=== PATIENT | female | born 1990 | race Caucasian/White ===

== ENCOUNTER 2021-01-12 12:26 | Outpatient (CLI) | payer MEDICAID ==
[2021-01-14 13:26] LABS: HSV 1 IGG TYPE SPECIFIC AB <0.90 index; HSV 2 IGG TYPE SPECIFIC AB <0.90 index
== END 2021-01-12 23:59 | disposition home or self-care (01) ==
LOC: LAB.N 12:26
PROVIDERS: ATTEND Family Medicine
DX: Z20.2 Contact with and (suspected) exposure to infections with a predominantly sexual mode of transmission (principal)
CPT/HCPCS: 81599; 86695; 86696; 87389

== ENCOUNTER 2021-07-07 12:02 | Outpatient (CLI) | payer MEDICAID ==
[2021-07-07 12:32] LABS: HCT - HEMATOCRIT 41.3 % (37.0-47.0); HGB - HEMOGLOBIN 13.7 g/dL (12.0-16.0); MEAN CORPUSCULAR HEMOGLOBIN 30.1 pg (27.0-31.0); MEAN CORPUSCULAR HGB CONC 33.2 g/dL (32.0-36.0); MEAN CORPUSCULAR VOLUME 90.8 fL (81.0-99.0); MEAN PLATELET VOLUME 11.2 fL (7.9-10.8); RED BLOOD COUNT 4.55 10^6/uL (4.20-5.40); WHITE BLOOD COUNT 9.4 x10^3/uL (4.8-10.8)
[2021-07-07 13:04] LABS: THYROID STIMULATING HORMONE 1.74 uIU/mL (0.34-5.60)
[2021-07-07 13:47] LABS: ESTIMATED AVERAGE GLUCOSE 91 mg/dL (70-100); HEMOGLOBIN A1c% 4.8 % (4.27-6.07)
== END 2021-07-07 12:03 | disposition home or self-care (01) ==
LOC: LAB 12:02
PROVIDERS: ATTEND Obstetrics & Gynecology
DX: Z00.00 Encounter for general adult medical examination without abnormal findings (principal); Z13.21 Encounter for screening for nutritional disorder; Z13.1 Encounter for screening for diabetes mellitus; Z83.3 Family history of diabetes mellitus
CPT/HCPCS: 36415; 81599; 82306; 83036; 83520; 84144; 84146; 84403; 84443; 85027; 86762

== ENCOUNTER 2021-07-10 20:20 | Outpatient (CLI) | payer MEDICAID ==
--- NOTE | 2021-07-11 02:28 | Ultrasound Report ---
PROCEDURE: Ultrasound of the pelvis, transabdominal and transvaginal INDICATIONS: CHRONIC PELVIC PAIN TECHNIQUE: Real-time scanning was performed of the pelvic organs, with image documentation. Additional endovagi nal scanning was necessary due to incomplete visualization of the adnexal and endometrial structures by transabdominal scanning. COMPARISON: None. FINDINGS: No pathologic free abdominal or pelvic fluid. Uterus: Uterus is normal in size at 9.5 x 4.5 x 6.4 cm. The endometrium measures 11.6 mm in combine d thickness. Ovaries: Right and left ovary measures 3.7 x 3.0 x 4.0 and 2.9 x 1.6 x 2.4 cm respectively. His 2 cm hemorrhagic cyst noted in left ovary. IMPRESSION: Left ovarian 2 cm hemorrhagic cyst. Otherwise unremarkable ultrasound pelvis Reviewed by: Wes Aguila MD on 07/11/2021 1:26 AM [place] Approved by: Wes Aguila MD on 07/11/2021 1:26 AM [place] Station ID: [id number]
== END 2021-07-10 20:21 | disposition home or self-care (01) ==
LOC: DI 20:20
PROVIDERS: ATTEND Obstetrics & Gynecology
DX: Z31.69 Encounter for other general counseling and advice on procreation (principal); Z87.42 Personal history of other diseases of the female genital tract; N83.202 Unspecified ovarian cyst, left side

== ENCOUNTER 2021-07-17 09:40 | Outpatient (CLI) | payer MEDICAID ==
[2021-07-18 09:31] LABS: ESTRADIOL 45 pg/mL; PROGESTERONE <0.5 ng/mL
== END 2021-07-17 09:41 | disposition home or self-care (01) ==
LOC: LAB 09:40
PROVIDERS: ATTEND Obstetrics & Gynecology
DX: Z31.9 Encounter for procreative management, unspecified (principal)
CPT/HCPCS: 36415; 82670; 83001; 84144

== ENCOUNTER 2022-05-05 13:57 | Outpatient (CLI) | payer MEDICAID ==
--- NOTE | 2022-05-05 16:47 | Ultrasound Report ---
PROCEDURE: OB First Trimester INDICATIONS: POSITIVE TEST OUTSIDE/PRIOR DATING DATA: Last menstrual period (LMP): 02/23/2022. LMP-based estimated date of delivery (NESTOR): 11/30/2022. First dating scan (date and location): 05/05/2022. Estimated date of delivery (NESTOR) from first dating scan: 12/02/2022. The below data below was generated using the ultrasound NESTOR of 12/02/2022 TECHNIQUE: Real-time scanning was performed of the fetus and maternal pelvic organs, with image documentation. COMPARISON: None FINDINGS: Embryo: Mean gestational sac diameter 5.0 cm. 10 weeks 5 days. [place]-rump length 2.98 cm. 9 weeks 6 days. Heart rate: 166 A small subchorionic bleed is seen on the left measuring 2.6 x 0.8 x 1.2 cm. Measurement variability in dating: +/- 4 weeks by LMP, +/- 7 days by mean sac diameter (use before 6 weeks gestation if crown-rump length not able to be measured), +/- 5 days by crown-rump length (6-12 weeks gestation). Maternal organs: Ovaries demonstrate a right corpus luteal cyst entering 3 cm.. IMPRESSION: 1. Live intrauterine with an estimated gestational age of 9 weeks 6 days. 2. Small subchorionic bleed on the left. 3. Estimated date of delivery 12/02/2022. Reviewed by: Tano Haider on 05/05/2022 4:45 PM PDT Approved by: Tano Haider on 05/05/2022 4:45 PM PDT Station ID: [id number]
== END 2022-05-05 13:58 | disposition home or self-care (01) ==
LOC: DI 13:57
PROVIDERS: ATTEND Nurse Practitioner
DX: O20.8 Other hemorrhage in early pregnancy (principal); Z3A.09 9 weeks gestation of pregnancy

== ENCOUNTER 2022-05-31 11:40 | Outpatient (CLI) | payer MEDICAID | END 2022-05-31 11:41 | disposition home or self-care (01) | LOC: LAB 11:40 | PROVIDERS: ATTEND Obstetrics & Gynecology | DX: Z34.00 Encounter for supervision of normal first pregnancy, unspecified trimester (principal) | CPT/HCPCS: 36415 ==

== ENCOUNTER 2022-07-27 15:30 | Outpatient (CLI) | payer MEDICAID ==
--- NOTE | 2022-07-28 14:46 | Ultrasound Report ---
PROCEDURE: OB Detailed Eval INDICATIONS: SUPERVISION OF OUTSIDE/PRIOR DATING DATA: Last menstrual period (LMP): 02/23/2022. LMP-based estimated date of delivery (NESTOR): 11/22/2022. First dating scan (date and location): 05/05/2022. Estimated date of delivery (NESTOR) from first dating scan: 12/02/2022. The below data below was generated using the ultrasound NESTOR of 12/02/22 TECHNIQUE: Real-time scanning was performed of the fetus, with image documentation and biometric measurements. COMPARISON: OB ultrasound 05/05/2022. FINDINGS: General: A single living intrauterine gestation is present. Presentation: Brain Placenta: Placental position is predominantly anterior with marginal previa 1.1 cm from the placenta edge. Amniotic fluid index: 12.4 cm, within normal limits for gestational age. Largest pocket 3.7 cm heart rate: 155 beats per minute. Maternal cervical canal: 5.3 cm long; normal length is 2.5 cm or more. biometrics: Biparietal diameter: 5.0 cm 21 weeks 1 day Head circumference: 19.0 cm 21 weeks 2 days Abdominal circumference: 17.6 cm 22 weeks 4 days Femur length: 0.5 cm 21 weeks 0 days Estimated gestational age from initial scan: 21 weeks 5 days Composite gestational age from present scan: 21 weeks 3 days Estimated weight and percentile: 447 g 45th percentile Measurement variability in biometric dating: +/- 10 days from 12-20 weeks gestation, +/- 2 weeks from 20-30 weeks gestation, +/- 3 weeks at 30 weeks gestation or later. Anatomic survey: Neuro: Ventricles are normal at less than 10 mm. Cisterna magna is normal at 3-11 mm. Cerebellum i s normal in size and morphology. Nuchal skin fold: Normal at less than 6 mm between 14 and 20 weeks gestational age. Face: Nose and lips, facial profile are normal. Spine: No evidence for spina bifida. Heart: 4-chambered heart is present, with normal ventricular outflow tracts. Diaphragm: Diaphragm is intact. Stomach: Left-sided stomach is present. Kidneys: No hydronephrosis. Normal is less than 5 mm in 2nd trimester, less than 7 mm in 3rd trimester. Cord: 3 vessel cord has orthotopic insertion. Bladder: Normal in size. Extremities: All 4 extremities are visualized. IMPRESSION: Single live intrauterine with ultrasound gestational age today of 21 weeks 3 days. Anatomy is within normal limits. Marginal previa is noted as above. Interval follow-up is recommended. Reviewed by: Carol Lechuga MD on 07/28/2022 2:45 PM PST Approved by: Carol Lechuga MD on 07/28/2022 2:45 PM [facility] Station ID: [id number]
== END 2022-07-27 15:31 | disposition home or self-care (01) ==
LOC: DI 15:30
PROVIDERS: ATTEND Obstetrics & Gynecology
DX: Z34.02 Encounter for supervision of normal first pregnancy, second trimester (principal)

== ENCOUNTER 2022-09-02 10:06 | Outpatient (CLI) | payer MEDICAID ==
[2022-09-02 10:23] LABS: HCT - HEMATOCRIT 34.7 % (37.0-47.0); HGB - HEMOGLOBIN 11.7 g/dL (12.0-16.0); MEAN CORPUSCULAR HEMOGLOBIN 30.7 pg (27.0-31.0); MEAN CORPUSCULAR HGB CONC 33.7 g/dL (32.0-36.0); MEAN CORPUSCULAR VOLUME 91.1 fL (81.0-99.0); MEAN PLATELET VOLUME 10.9 fL (7.9-10.8); RED BLOOD COUNT 3.81 10^6/uL (4.20-5.40); RED CELL DISTRIBUTION WIDTH 12.5 % (12.0-15.0); WHITE BLOOD COUNT 10.6 x10^3/uL (4.8-10.8)
== END 2022-09-02 10:07 | disposition home or self-care (01) ==
LOC: LAB 10:06
PROVIDERS: ATTEND Obstetrics & Gynecology
DX: Z34.90 Encounter for supervision of normal pregnancy, unspecified, unspecified trimester (principal)
CPT/HCPCS: 36415; 85027; 86850

== ENCOUNTER 2022-09-16 07:01 | Outpatient (CLI) | payer MEDICAID ==
--- NOTE | 2022-09-16 17:42 | Ultrasound Report ---
PROCEDURE: OB Limited INDICATIONS: PARTIAL PLACENTA PREVIA OUTSIDE/PRIOR DATING DATA: Last menstrual period (LMP): 02/23/2022. LMP-based estimated date of delivery (NESTOR): 11/30/2022. First dating scan (date and location): 05/05/2022. Estimated date of delivery (NESTOR) from first dating scan: 12/02/2022. The below data below was generated using the ultrasound NESTOR of 11/22/2022 TECHNIQUE: Real-time scanning was performed of the fetus, with image documentation. COMPARISON: OB ultrasound 07/27/2022 FINDINGS: A single living intrauterine gestation is present. Presentation: Breech Placenta: Placental position is anterior, without previa. Amniotic fluid index: 16.3 cm, is 64th percentile for gestational age. Largest pocket measures 5.6 c m heart rate: 150 beats per minutes. Maternal cervical canal: 4.1 cm long; normal length is 2.5 cm or more. Estimated gestational age from initial scan: 29 weeks 0 days. IMPRESSION: Single live intrauterine with ultrasound gestational age of 29 weeks 0 days. No visualized previa. QUIN measures 64th percentile. Reviewed by: Carol Lechuga MD on 09/16/2022 5:40 PM PST Approved by: Carol Lechuga MD on 09/16/2022 5:40 PM PST Station ID: [id number]
== END 2022-09-16 07:02 | disposition home or self-care (01) ==
LOC: DI 07:01
PROVIDERS: ATTEND Obstetrics & Gynecology
DX: O44.23 Partial placenta previa NOS or without hemorrhage, third trimester (principal); Z3A.29 29 weeks gestation of pregnancy

== ENCOUNTER 2022-09-27 08:33 | Outpatient (CLI) | payer MEDICAID ==
[2022-09-27 09:05] LABS: BILIRUBIN,URINE NEGATIVE (NEGATIVE); GLUCOSE, URINE (UA) NEGATIVE (NEGATIVE); KETONES,URINE (UA) TRACE mg/dL (NEGATIVE); LEUKOCYTE ESTERASE, URINE TRACE (NEGATIVE); NITRITE,URINE NEGATIVE (NEGATIVE); OCCULT BLOOD,URINE NEGATIVE (NEGATIVE); PROTEIN,URINE NEGATIVE (NEGATIVE); UROBILINOGEN,URINE 0.2 (NORMAL) E.U./dL (NORMAL)
--- NOTE | 2022-09-27 09:05 | PROVIDER PROGRESS NOTE ---
- HPI Chief Complaint: Other (Cramping x 3 days) - Exam NST Procedure Start Date 09/27/22 Start Time 08:46 Stop Time 09:10 Vibroacoustic Stimulation Used No Patient States Movement Yes - Procedures OB Procedure Performed: NST Diagnosis/Indication for NST: labor Service Date of procedure: 09/27/22 (Read 09/27/22) - Plan Plan: Patient is a 32-year-old -0-1-3 at 30 weeks 2 days gestation presenting to triage for cramping for 3 days. She has had intermittent [place] contractions, but overnight she had more intense pains and woke her from sleep. Mostly in her back. Some nausea, but no vomiting. No constipation or diarrhea. No sick contacts. No fever. Denies dysuria or increased frequency. She has good movement, no leaking, no vaginal bleeding. She denies headache, right upper quadrant pain, changes in vision. Past medical history Kidney stones Abnormal Pap smears Past surgical history Tonsillectomy Family history Father: Diabetes type 2 Sister: Hypertension, diabetes Social history Denies tobacco, alcohol, drugs Physical Constitutional: alert, no acute distress, well hydrated, well developed, well nourished, appropriate dress. Cardiovascular: Regular rate and rhythm. Respiratory: no respiratory distress. Abdomen: Gravid, nondistended, nontender, no guarding. Psych: affect and mood appropriate, normal interaction, good eye contact. SVE: 0/0/-3 FHT: 145 bpm baseline, moderate., Accelerations present, no decelerations. [place]: Quiescent Labs:Urine unremarkable Assessment and plan 32-year-old -0-1-3 at 30 weeks 2 days gestation with cramping Abdominal cramping -No cervical dilation, and as this is been going on for 3 days, likely discomforts of . No contractions seen on monitor. -Discussed if symptoms worsen, develops abnormal discharge or itching, will get vaginosis swab. Discussed that a yeast infection or bacterial vaginosis can sometimes cause some cramping. Currently asymptomatic, so will defer testing. -Encouraged increased hydration. - labor precautions discussed.
[2022-09-27 09:06] LABS: CLARITY,URINE CLEAR (CLEAR)
[2022-09-27 09:08] VITALS: BP 114/71
[2022-09-27 09:21] LABS: BACTERIA,URINE Few /HPF (None Seen); RBC,URINE None Seen /HPF (0-5); SQUAMOUS EPITHELIAL CELL,UR MOD Squamous (<= Few); WBC,URINE 0-3 /HPF (0-5)
== END 2022-09-27 10:00 | disposition home or self-care (01) ==
LOC: WFO 08:33 → FBP 08:38 → WFO 10:00
PROVIDERS: ATTEND Obstetrics & Gynecology
DX: O99.891 Other specified diseases and conditions complicating pregnancy (principal); R10.9 Unspecified abdominal pain
CPT/HCPCS: 59025; 81001; 81003; 87086; 99214

== ENCOUNTER 2022-11-22 23:42 | Inpatient (IN) | payer MEDICAID ==
[2022-11-23] MEDS ORDERED: OXYTOCIN/SODIUM CHLORIDE 500 ML IV PRN (00:37)
[2022-11-23] MEDS ORDERED: fentaNYL 100 MCG/2 ML VIAL IVP PRN (00:37)
[2022-11-23] MEDS ORDERED: TRANEXAMIC ACID IN NACL 1,000 MG/100 ML BAG IV PRN (00:37)
[2022-11-23] MEDS ORDERED: TERBUTALINE 1 MG/ML VIAL SUBQ PRN (00:37)
[2022-11-23] MEDS ORDERED: hydrALAZINE INJ 20 MG/ML VIAL IVP PRN ×2 (00:37)
[2022-11-23] MEDS ORDERED: miSOPROStoL 200 MCG TABLET PR PRN (00:37)
[2022-11-23] MEDS ORDERED: NIFEdipine 10 MG CAPSULE PO PRN (00:37)
[2022-11-23] MEDS ORDERED: LABETALOL 20 MG/4 ML SYRINGE IVP PRN ×3 (00:37)
[2022-11-23] MEDS ORDERED: LACTATED RINGERS 500 ML IV ONE (00:37)
[2022-11-23] MEDS ORDERED: lidocaine 1% 20 ML MDV ID PRN (00:37)
[2022-11-23] MEDS ORDERED: METHYLERGONOVINE 0.2 MG/ML VIAL IM PRN (00:37)
[2022-11-23] MEDS ORDERED: CARBOPROST TROMETHAMINE 250 MCG/ML AMP IM PRN (00:37)
[2022-11-23] MEDS ORDERED: SODIUM CHLORIDE FLUSH 0.9% 10 ML SYRINGE IVP PRN (00:37)
[2022-11-23] MEDS ORDERED: OXYTOCIN 10 UNIT/ML VIAL IM PRN (00:37)
[2022-11-23 00:40] LABS: RUPTURE OF MEMBRANES PLUS POSITIVE (NEGATIVE)
[2022-11-23] MEDS ORDERED: ROPIVACAINE 0.2% 200 MG/100 ML BAG EP ONE (00:46)
[2022-11-23] MEDS ORDERED: OXYTOCIN/SODIUM CHLORIDE 500 ML IV ONE (00:46)
--- NOTE | 2022-11-23 00:56 | HISTORY & PHYSICAL EXAMINATION ---
Admit History - Visit Reason Visit Reason: Membranes rupture - : 5 Parity: 3 Care: positive: [facility] Risk/History: positive: None Complications This : positive: None Smoking Status: Never smoker - Mother's Labs Mother's Blood Type: positive: A Mother's RH: positive: Positive GBS: positive: Group B Step Negative Rubella Status: positive: Immune - Other Maternal History Other Maternal History: Med: kidney stones Surg: tonsillectomy Fam: noncontributory Social: denies alda Meds/Allgy - Home Medications Home Medications: Ambulatory Orders Medication Instructions Recorded Confirmed Ibuprofen [Motrin] 1,200 mg PO ONCE 08/31/18 08/31/18 - Allergies Allergies/Adverse Reactions: Allergies Allergy/AdvReac Type Severity Reaction Status Date / Time No Known Drug Allergies Allergy Verified 09/15/21 15:50 Review of Systems - All Other Systems All Other Systems: reports: Reviewed and negative Physical - Abdominal Exam Vital Signs: Temp Pulse Resp BP Pulse Ox O2 Flow Rate 98.1 F 64 14 141/87 H 11/23/22 00:35 11/23/22 00:35 11/23/22 00:35 11/23/22 00:35 Contraction Frequency (min/apart): 2 Contraction Intensity: positive: Moderate Uterine Resting Tone: positive: Soft - Monitoring Strip Review: positive: Category I - Presentation Presentation: positive: Vertex (3400g, placenta anterior) - Vaginal Exam Membranes: positive: Membranes ruptured Dilation (in cm): 5 Cervical Position: positive: Midposition Plan for Labor - Plan For Labor I expect patient to be DC'd or transferred within 96 hours.: Yes Plan for Labor: 32yo at 39w by LMP confirmed by 10w US admitted in active labor, SROM - Admit - CBC, TS - Anticipate
[2022-11-23] MEDS ORDERED: ONDANSETRON 4 MG/2 ML VIAL IVP PRN ×2 (00:57→01:37)
[2022-11-23] MEDS ORDERED: LACTATED RINGERS 1,000 ML IV SCH ×2 (01:00→03:00)
[2022-11-23 01:03] LABS: BASOPHILS % (AUTO) 0.3 %; EOSINOPHILS # (AUTO) 0.1 10^3/uL (0.0-0.7); EOSINOPHILS % (AUTO) 0.4 %; HCT - HEMATOCRIT 33.3 % (37.0-47.0); HGB - HEMOGLOBIN 10.6 g/dL (12.0-16.0); LYMPHOCYTES # (AUTO) 2.8 10^3/uL (1.5-3.5); LYMPHOCYTES % (AUTO) 18.7 %; MEAN CORPUSCULAR HGB CONC 31.8 g/dL (32.0-36.0); MEAN CORPUSCULAR VOLUME 84.7 fL (81.0-99.0); MEAN PLATELET VOLUME 11.7 fL (7.9-10.8); MONOCYTES % (AUTO) 6.4 %; NEUTROPHILS % (AUTO) 73.7 %; NRBC ABSOLUTE COUNT (AUTO) 0.03 x10^3/uL; NUCLEATED RED BLOOD CELLS AUTO 0.2 /100WBC; PLT - PLATELET COUNT 222 10^3/uL (130-450); RED BLOOD COUNT 3.93 10^6/uL (4.20-5.40); RED CELL DISTRIBUTION WIDTH 13.2 % (12.0-15.0); WHITE BLOOD COUNT 14.9 x10^3/uL (4.8-10.8)
--- NOTE | 2022-11-23 01:13 | PROCEDURE REPORT ---
- HPI Diagnosis/Indication for NST: Other Vital Signs Temperature 98.1 F 11/23/22 00:35 Heart Rate 64 11/23/22 00:35 Respiratory Rate 14 11/23/22 00:35 Blood Pressure 141/87 H 11/23/22 00:35 Temperature 98.1 F 11/23/22 00:35 Heart Rate 64 11/23/22 00:35 Respiratory Rate 14 11/23/22 00:35 Blood Pressure 141/87 H 11/23/22 00:35 O2 Saturation If not protocol: Oxygen Flow, liters/minute - NST Procedure NST Procedure Start Time 08:46 Stop Time 09:10 EFM: 130s, moderate variability, positive accelerations 15x15, no decelerations [place]: q2m NST reactive/Cat 1 Performed and read 11/23/22 - Results and Plan Plan: 32yo admitted in labor, see H&P ROMPLUS POS, SROM 1994
[2022-11-23] MEDS ORDERED: NALBUPHINE 10 MG/ML AMP IVP PRN (01:37)
[2022-11-23] MEDS ORDERED: diphenhydrAMINE INJ 50 MG/ML VIAL IVP PRN (01:37)
[2022-11-23] MEDS ORDERED: ROPIVACAINE 0.2% 200 MG/100 ML BAG EP PRN (01:37)
[2022-11-23] MEDS ORDERED: METOCLOPRAMIDE 10 MG/2 ML VIAL IVP PRN (01:37)
[2022-11-23] MEDS ORDERED: ePHEDrine 50 MG/ML VIAL IVP PRN (01:37)
[2022-11-23] MEDS ORDERED: NALOXONE 0.4 MG/ML VIAL IVP PRN (01:37)
--- NOTE | 2022-11-23 02:07 | DELIVERY NOTE ---
Delivery Note - Infant Delivery Method Infant Delivery Method: positive: Spontaneous vaginal delivery - Presentation Presentation: positive: Vertex, LUCHO - left occiput anterior - Nuchal Cord Nuchal Cord: positive: Present (nuchal x2 reduced) - Anesthetic Anesthetic Type: - Amniotic Fluid Description Amniotic Fluid Description: positive: Clear - Episiotomy Type Episiotomy Type: positive: None - Laceration Laceration: positive: None - Delivery Outcome Delivery Outcome: positive: Livebirth - [place]: positive: Placed in direct skin contact with mother, Bulb syringe, Stimulated, Warmed, [place] used sex: positive: Male - Cord Cord: positive: 3 vessels - Placenta Placenta: positive: Intact - Estimated Blood Loss Estimated Blood Loss (in cc): 100 - Post Delivery Events Post Delivery Events: positive: No post delivery events - Delivery Comments (Free Text/Narrative) Delivery Comments (Free Text/Narrative): /+2. Maternal pushing with good efforts. Head delivered LUCHO. Nuchal x2 reduced. Body delivered with ease. placed on mother's abdomen. Delayed cord clamping. Placenta delivered spontaneously and intact, 3vc. Fundus firm. Vagina and perineum inspected, no lacerations. Hemostasis. QBL 100cc. Family bonding at bedside.
[2022-11-23] MEDS ORDERED: WITCH HAZEL/GLYCERIN 1 PAD TOP PRN (02:08)
[2022-11-23] MEDS ORDERED: HYDROCORTISONE 1% CREAM 28 GM TUBE PR PRN (02:08)
[2022-11-23] MEDS: IBUPROFEN 800 MG TABLET PO SCH ×4 (03:00→21:00)
[2022-11-23] MEDS: ACETAMINOPHEN 500 MG TABLET PO SCH ×3 (03:00→19:00)
[2022-11-23] MEDS: DOCUSATE SODIUM 100 MG CAPSULE PO SCH ×2 (08:48→21:00)
[2022-11-24] MEDS: IBUPROFEN 800 MG TABLET PO SCH (04:39)
[2022-11-24] MEDS: ACETAMINOPHEN 500 MG TABLET PO SCH (04:40)
[2022-11-24] MEDS: DOCUSATE SODIUM 100 MG CAPSULE PO SCH (08:21)
[2022-11-24 08:39] VITALS: BP 116/64
--- NOTE | 2022-11-24 09:17 | Discharge Plan ---
Discharge Plan Problem Reviewed?: Yes Disposition: Home, Self Care Condition: Good Diet: Regular Activity Restrictions: Nothing in the pelvis No Smoking: If you smoke, Please STOP! Call for help. Follow-up with: Cynthia Rucker DO [Provider Admit Priv/Credential] -
--- NOTE | 2022-11-24 09:19 | PROVIDER PROGRESS NOTE ---
Subjective - Prog Note Date Prog Note Date: 11/24/22 Prog Note Time: 09:17 - Subjective Subjective: Patient is PPD#1 s/p . She is doing well this morning. Ambulating, tolerating regular diet. Bleeding<lochia. . No problems. Objective - Vital Signs/Intake & Output Reviewed Vital Signs: Yes Vital Signs: Vital Signs x48h Temp Pulse Resp BP Pulse Ox 11/24/22 08:00 98.1 F 80 16 116/64 100 11/24/22 04:49 98.1 F 81 14 109/58 L Intake & Output: Intake & Output 11/21/22 11/22/22 11/23/22 11/24/22 23:59 23:59 23:59 23:59 Intake Total 2925 300 Output Total 700 Balance 2225 300 - Objective General Appearance: positive: No acute distress, Alert Respiratory: positive: No respiratory distress, Breath sounds nml Cardiovascular: positive: Regular rate & rhythm, No murmur, No gallop Abdomen: positive: Non-tender, Other (firm fundus below umbilicus) Skin: positive: Color nml Extremities: positive: Non-tender, No pedal edema - Lab Results Fish Bones: 11/23/22 00:50 Assessment/Plan - Problem List (1) Spontaneous vaginal delivery Impression: uncomplicated vaginal delivery and course. Discharge to home today. Rh+, rubella immune
--- NOTE | 2022-11-24 09:22 | DISCHARGE SUMMARY ---
Discharge Summary Admit Date: 11/23/22 Discharge Date: 11/24/22 Discharging Provider: Markos CURRY Primary Care Provider: Chaim CURRY Code Status: Attempt Resuscitation Condition at Discharge: Good Discharge Disposition: 01 Home, Self Care - DIAGNOSES Admission Diagnoses: Full term , presented in labor Discharge Diagnoses with Status of Each Condition: Spontaneous Vaginal Delivery - HPI History of Present Illness: Patient is a who presented at term in labor. SHe had an uncomplicated vaginal delivery and course and was discharged to home on day 1. - HOSPITAL COURSE Hospital Course: Patient had a normal spontaneous vaginal delivery and an uncomplicated course. - ALLERGIES Allergies/Adverse Reactions: Allergies Allergy/AdvReac Type Severity Reaction Status Date / Time No Known Drug Allergies Allergy Verified 09/15/21 15:50 - MEDICATIONS Home Medications: Ambulatory Orders Medication Instructions Recorded Confirmed Ibuprofen [Motrin] 1,200 mg PO ONCE 08/31/18 08/31/18 - PHYSICAL EXAM AT DISCHARGE General Appearance: positive: No acute distress, Alert Eyes Bilateral: positive: Normal inspection Respiratory: positive: No respiratory distress, Breath sounds nml. negative: Wheezes, Rales, Rhonchi Cardiovascular: positive: Regular rate & rhythm, No murmur, No gallop Abdomen: positive: Non-tender (firm fundus below umbilicus) Skin: positive: Color nml - LABS Result Diagrams: 11/23/22 00:50 - FOLLOW UP Follow Up: Follow up with Dr. Rucker in 1 week
--- NOTE | 2022-11-24 10:11 | Labor Flowsheet ---
Labor Flowsheet Datetime Report Generated by CPN: 11/24/2022 10:11 Datetime: 11/24/2022 08:30 VITAL SIGNS NBP Sys/Sarah/Mean (mmHg): 116 : 64 : 75 Pulse: 78 SpO2 (%): 100 Datetime: 11/23/2022 05:01 Membranes Ruptured Date/Time: 11/22/2022 23:20 Membranes Rupture Method: Spontaneous Amniotic Fluid Color: Clear Amniotic Fluid Amount: Scant Amniotic Fluid Odor: Normal Cervical Ripening Agents Other: none Datetime: 11/23/2022 02:31 Temperature (C): 36.6 Datetime: 11/23/2022 02:30 PAIN Pain Scale: 4 Datetime: 11/23/2022 01:53 Stage of : Recovery Datetime: 11/23/2022 01:52 Temperature Route: Oral Stage 2 Comments: Placenta spont expelled Datetime: 11/23/2022 01:46 LaborFlag: Labor Datetime: 11/23/2022 01:40 UTERINE ACTIVITY Monitor Mode: Palpation Frequency (min): 1.5-2.5 Quality: Strong Duration (sec): 60-80 Pattern: Normal: <= 5 Contractions in 10 Minutes Resting Tone (Palpate): Relaxed FHR Baseline Rate : 135 FHR Baseline Changes: No Baseline Change Variability: Moderate 6-25 bpm Accelerations: 15X15 Decelerations: Variable Category: Category II Datetime: 11/23/2022 01:35 STAGE 2 Pushing: Coached on Pushing; Urge to Push Pushing Position: Pushing with Contractions Datetime: 11/23/2022 01:30 Contraction Comments: sitting on side of bed, hunched over for epidural placement ASSESSMENT A Monitor Mode: External US COMMUNICATION Communication: Provider at Bedside Provider Notified (Name): [place] Datetime: 11/23/2022 01:24 Notification Reason: Labor Status Datetime: 11/23/2022 01:21 VAGINAL EXAM Dilatation (cm): 10.0 Effacement (%): 90 Station: 2 Exam by: HRick Liriano, RN Datetime: 11/23/2022 01:18 Epidural Procedure Other: Pump Started Datetime: 11/23/2022 01:11 Epidural Procedure: Test Dose Datetime: 11/23/2022 01:09 ANESTHESIA Anesthesia Plans: Epidural Epidural Positioning: Sitting Datetime: 11/23/2022 01:07 Respirations: 19 Datetime: 11/23/2022 01:05 MEDICATIONS Antiemetics/Antacids: Zofran (mg) @ 4 Datetime: 11/23/2022 00:53 PATIENT CARE IV/Blood Work: IV Started; IV Bolus Given ml @ 999
== END 2022-11-24 10:00 | disposition home or self-care (01) | DRG 807 ==
LOC: WFO 23:42 → FBP 23:47 → WFO 11-23 00:33 → FBP 11-23 00:33
PROVIDERS: ADMIT Obstetrics & Gynecology; ATTEND Obstetrics & Gynecology
PROC: 10E0XZZ Delivery of Products of Conception, External Approach (ICD-10-PCS; principal; 2022-11-23)
DX: O69.81X0 Labor and delivery complicated by cord around neck, without compression, not applicable or unspecified (principal); Z37.0 Single live birth; Z3A.39 39 weeks gestation of pregnancy
CPT/HCPCS: 84112; 85025; 86850; 86900; 86901; 99215; A9270; J7120

== ENCOUNTER 2022-12-06 12:38 | Day surgery (SDC) | payer MEDICAID ==
[~2022-12-06 12:38] MED LIST: LIDOCAINE-PF 2% 10 ML AMP SUBQ ONE; MIDAZOLAM 2 MG/2 ML VIAL ONE; PROPOFOL 200 MG/20 ML VIAL IVP ONE; ROCURONIUM 50 MG/5 ML VIAL ONE; fentaNYL 100 MCG/2 ML VIAL ONE
[2022-12-06] MEDS ORDERED: ACETAMINOPHEN 1,000 MG/100 ML 1,000 MG/100 ML BAG IV ONE (12:40)
[2022-12-06] MEDS ORDERED: ATROPINE ABBOJECT 1 MG/10 ML SYRINGE IVP PRN (13:01)
[2022-12-06] MEDS ORDERED: NALOXONE 0.4 MG/ML VIAL IVP PRN (13:01)
[2022-12-06] MEDS ORDERED: fentaNYL 100 MCG/2 ML VIAL IVP PRN (13:01)
[2022-12-06] MEDS ORDERED: MORPHINE 2 MG/ML CARPUJECT IVP PRN (13:01)
[2022-12-06] MEDS ORDERED: HYDROmorphone 0.5 MG/0.5 ML SYRINGE IVP PRN (13:01)
[2022-12-06] MEDS ORDERED: ePHEDrine 50 MG/ML VIAL IVP PRN (13:01)
[2022-12-06] MEDS ORDERED: ONDANSETRON 4 MG/2 ML VIAL IVP PRN (13:01)
[2022-12-06] MEDS ORDERED: METOCLOPRAMIDE 10 MG/2 ML VIAL IVP PRN (13:01)
--- NOTE | 2022-12-06 13:01 | ANESTHESIA ---
Pre-Anesthesia VS, & Labs - Diagnosis post hemorrhage - Procedure D&C Height: 5 ft 3 in Weight (kg): 68 kg Body Mass Index: 26.5 BMI Classification: Overweight - NPO Last Fluid Intake: 3.5 hours ago - Is Patient ?: No - Lab Results Lab results reviewed: Yes Home Medications and Allergies Ibuprofen [Motrin] 1,200 mg PO ONCE 08/31/18 Allergies/Adverse Reactions: Allergies Allergy/AdvReac Type Severity Reaction Status Date / Time No Known Drug Allergies Allergy Verified 09/15/21 15:50 Anes History & Medical History - Anesthetic History Anesthesia Complications: reports: No previous complications Family history of Anesthesia Complications: Denies Family history of Malignant Hyperthermia: Denies - Medical History Cardiovascular: reports: None Pulmonary: reports: None Gastrointestinal: reports: None Urinary: reports: None Neuro: reports: None Musculoskeletal: reports: None Endocrine/Autoimmune: reports: None Blood Disorders: reports: None Skin: reports: None Smoking Status: Never smoker - Surgical History Eyes Ears Nose Throat (EENT): reports: Tonsil/Adenoidectomy Orthopedic: reports: Other Exam General: Alert, Oriented x3, Cooperative Dental: WNL Mouth Openin Fingerbreadth Thyromental Distance: 4-6 cm Respiratory: Lungs clear, Normal breath sounds, No respiratory distress Cardiovascular: Regular rate Neurological: Normal speech Mental/Cognitive Status: Alert/Oriented X3, Normal for patient Cognitive Status: Within normal limits Plan Anesthesia Type: General Consent for Procedure(s) Verified and Reviewed: Yes Code Status: Attempt Resuscitation ASA classification: 2-Mild systemic disease Is this case an emergency?: Yes (pt continues to mbleed in office, to SDS, to OR for hemostatsis)
[2022-12-06] MEDS ORDERED: LACTATED RINGERS 1,000 ML IV ONE ×2 (13:17→14:50)
[2022-12-06 13:26] LABS: BASOPHILS # (AUTO) 0.1 10^3/uL (0.0-0.1); BASOPHILS % (AUTO) 0.5 %; EOSINOPHILS # (AUTO) 0.1 10^3/uL (0.0-0.7); EOSINOPHILS % (AUTO) 1.1 %; HCT - HEMATOCRIT 36.1 % (37.0-47.0); HGB - HEMOGLOBIN 11.3 g/dL (12.0-16.0); LYMPHOCYTES # (AUTO) 1.9 10^3/uL (1.5-3.5); MEAN CORPUSCULAR HEMOGLOBIN 26.6 pg (27.0-31.0); MEAN CORPUSCULAR HGB CONC 31.3 g/dL (32.0-36.0); MEAN CORPUSCULAR VOLUME 84.9 fL (81.0-99.0); MONOCYTES # (AUTO) 0.4 10^3/uL (0.0-1.0); MONOCYTES % (AUTO) 3.8 %; NEUTROPHILS # (AUTO) 7.6 10^3/uL (1.5-6.6); NEUTROPHILS % (AUTO) 75.3 %; PLT - PLATELET COUNT 244 10^3/uL (130-450); RED BLOOD COUNT 4.25 10^6/uL (4.20-5.40); RED CELL DISTRIBUTION WIDTH 13.1 % (12.0-15.0); WHITE BLOOD COUNT 10.1 x10^3/uL (4.8-10.8)
[2022-12-06] MEDS ORDERED: LACTATED RINGERS 1,000 ML IV SCH (14:00)
[2022-12-06] MEDS ORDERED: KETOROLAC 30 MG/ML VIAL ONE (14:06)
[2022-12-06] MEDS ORDERED: ONDANSETRON 4 MG/2 ML VIAL ONE ×2 (14:06→15:07)
[2022-12-06] MEDS ORDERED: DEXAMETHASONE 4 MG/ML VIAL ONE (14:06)
[2022-12-06] MEDS ORDERED: SUGAMMADEX 200 MG/2 ML VIAL IVP ONE (14:12)
[2022-12-06] MEDS ORDERED: TRANEXAMIC ACID 1,000 MG/10 ML VIAL ONE (14:35)
[2022-12-06] MEDS ORDERED: miSOPROStoL 200 MCG TABLET PR ONE (14:36)
[2022-12-06] MEDS ORDERED: METHYLERGONOVINE 0.2 MG/ML AMP IM ONE (14:36)
[2022-12-06] MEDS ORDERED: miSOPROStoL 200 MCG TABLET ONE (14:36)
[2022-12-06] MEDS ORDERED: METHYLERGONOVINE 0.2 MG/ML VIAL ONE (14:39)
[2022-12-06] MEDS ORDERED: DOXYCYCLINE 100 MG TABLET PO SCH (15:00)
--- NOTE | 2022-12-06 15:10 | OPERATIVE REPORT ---
Operative Report - General Procedure Date: 12/06/22 Planned Procedure: Dilation and curettage Pre-Op Diagnosis: hemorrhage, delayed Procedure Performed: Dilation and curettage Post Op Diagnosis: hemorrhage, delayed - Procedure Note Primary Surgeon: Cynthia Rucker DO Anesthesia Provider: Vern Santamaria CRNA Pathology: Products of conception Estimated Blood Loss (mL): 400 Indications: hemorrhage, delayed Findings: Moderate amount of products of conception Complications: None - Other Other Information/Narrative: Transported to OR. Anesthesia obtained without difficulty. Placed in dorsal lithotomy in Philip stirrups. Prepped and draped in sterile fashion. Bladder drained. Speculum placed. Anterior lip of cervix grasped with tenaculum. Sounded to 8cm. 8mm suction curette introduced and uterus cleared of POCs. Sharp curettage introduced to ensure complete evacuation. US then performed to confirm. Suction curette introduced again under US guidance to ensure complete evacuation. Uterus now cleared but with bleeding. Cytotec and methergine given. Bleeding decreased. Monitored for hemostasis. Counts correct x2. Transferred to PACU in stable condition.
[2022-12-06] MEDS ORDERED: DOXYCYCLINE 100 MG TABLET PO ONE (15:21)
--- NOTE | 2022-12-06 15:28 | ANESTHESIA POST OP EVALUATION ---
Anesthesia Post Eval - Post Anesthesia Eval Vitals: Last Vital Signs Temp 36.9 C 12/06/22 15:17 Pulse 77 12/06/22 15:22 Resp 7 L 12/06/22 15:22 BP 118/72 12/06/22 15:22 Pulse Ox 100 12/06/22 15:22 O2 Flow Rate CV Function Including HR & BP: Stable Pain Control: Satisfactory Nausea & Vomiting: Negative Mental Status: Baseline Respiratory Status: Airway Patent Hydration Status: Satisfactory Anesthesia Complications: None
[2022-12-06 15:48] VITALS: BP 123/79
== END 2022-12-06 12:39 | disposition home or self-care (01) ==
LOC: SDS 12:38
PROVIDERS: ATTEND Obstetrics & Gynecology
PROC: 10D17ZZ Extraction of Products of Conception, Retained, Via Natural or Artificial Opening (ICD-10-PCS; principal; 2022-12-06 13:00)
DX: O72.2 Delayed and secondary postpartum hemorrhage (principal)
CPT/HCPCS: 36415; 59160; 85025; 86850; 86900; 86901; A9270; J0131; J2210; J7120

== ENCOUNTER 2022-12-11 16:24 | Day surgery (SDC) | payer MEDICAID ==
--- NOTE | 2022-12-11 16:58 | ED Physician Documentation ---
History of Present Illness - Stated complaint Stated Complaint: ABD CRAMPING POST DNC - Chief complaint Chief Complaint: Abd Pain - History obtained from History obtained from: Patient - History of Present Illness Pain level max: 6 Pain level now: 5 - Additonal information Additional information: Patient is a 32-year-old female who has been through 4 live births previously. She states 3 weeks ago she had a spontaneous vaginal delivery complicated by hemorrhage. She states she had a D&C 5 days ago. She states that she has continued to have vaginal bleeding since that time. She states that she feels lightheaded and dizzy. She states she is still passing a large amount of blood, unable to quantify, and clots. She states she is developing a foul odor as well. She is also having continued pain. She states she is taking Motrin and Tylenol and does not want to take anything stronger. Review of Systems Constitutional: denies: Fever, Chills Throat: denies: Sore throat Respiratory: denies: Cough GI: denies: Vomiting, Diarrhea : denies: Dysuria, Frequency, Hesitancy, Discharge Skin: denies: Rash Musculoskeletal: denies: Neck pain, Back pain Neurologic: denies: Headache PD PAST MEDICAL HISTORY - Past Medical History Past Medical History: Yes Cardiovascular: None Respiratory: None Neuro: None Endocrine/Autoimmune: None GI: None AEROSPACE MANAGER: None : Kidney stones HEENT: None Psych: None Musculoskeletal: Chronic back pain Derm: None - Past Surgical History Past Surgical History: No Ortho: Other HEENT: Tonsil/Adenoidectomy - Present Medications Home Medications: Ambulatory Orders Medication Instructions Recorded Confirmed Ibuprofen [Motrin] 1,200 mg PO ONCE 08/31/18 12/06/22 - Allergies Allergies/Adverse Reactions: Allergies Allergy/AdvReac Type Severity Reaction Status Date / Time No Known Drug Allergies Allergy Verified 12/11/22 16:39 - Social History Does the pt smoke?: No Smoking Status: Never smoker Does the pt drink ETOH?: No Does the pt have substance abuse?: No - Immunizations Immunizations are current?: Yes - POLST Patient has POLST: No PD ED PE NORMAL - Vitals Vital signs reviewed: Yes - General General: Alert and oriented X 3, No acute distress - HEENT HEENT: Moist mucous membranes - Neck Neck: Supple, no meningeal sign - Cardiac Cardiac: RRR, Strong equal pulses - Respiratory Respiratory: No respiratory distress, Clear bilaterally - Abdomen Abdomen: Soft, Non distended, Other (Tender to palpation suprapubic. No peritoneal signs.) - Derm Derm: Warm and dry - Neuro Neuro: Alert and oriented X 3 - Psych Psych: Normal mood, Normal affect Results - Vitals Vitals: Vital Signs - 24 hr 12/11/22 12/11/22 12/11/22 16:30 19:00 21:13 Temperature 37.9 C 36.9 C Heart Rate 103 H 98 94 Respiratory 16 18 16 Rate Blood Pressure 114/73 118/78 122/68 O2 Saturation 99 99 100 12/11/22 21:15 Temperature Heart Rate 87 Respiratory 18 Rate Blood Pressure 131/67 H O2 Saturation 100 Oxygen O2 Source Room air - Labs Labs: Laboratory Tests 12/11/22 12/11/22 12/11/22 16:58 16:58 16:58 WBC 9.8 RBC 3.77 L Hgb 10.1 L Hct 32.4 L MCV 85.9 MCH 26.8 L MCHC 31.2 L RDW 13.4 Plt Count 249 MPV 11.3 H Neut # (Auto) 7.4 H Lymph # (Auto) 1.7 [place] # (Auto) 0.5 Eos # (Auto) 0.1 Baso # (Auto) 0.0 Absolute Nucleated RBC 0.00 Nucleated RBC % 0.0 PT 11.6 INR 1.0 APTT 26.4 Sodium 142 Potassium 3.6 Chloride 107 Carbon Dioxide 27 Anion Gap 8.0 BUN 12 Creatinine 0.6 Estimated GFR (MDRD) 115 Glucose 101 H Calcium 8.7 Total Bilirubin 0.5 AST 27 ALT 37 Alkaline Phosphatase 74 Total Protein 7.5 Albumin 3.9 Globulin 3.6 Albumin/Globulin Ratio 1.1 Lipase 34 Urine Color Urine Clarity Urine pH Ur Specific [place] Urine Protein Urine Glucose (UA) Urine Ketones Urine Occult Blood Urine Nitrite Urine Bilirubin Urine Urobilinogen Ur Leukocyte Esterase Urine RBC Urine WBC Ur Squamous Epith Cells Urine Bacteria Ur Microscopic Review Urine Culture Comments 12/11/22 16:58 WBC RBC Hgb Hct MCV MCH MCHC RDW Plt Count MPV Neut # (Auto) Lymph # (Auto) [place] # (Auto) Eos # (Auto) Baso # (Auto) Absolute Nucleated RBC Nucleated RBC % PT INR APTT Sodium Potassium Chloride Carbon Dioxide Anion Gap BUN Creatinine Estimated GFR (MDRD) Glucose Calcium Total Bilirubin AST ALT Alkaline Phosphatase Total Protein Albumin Globulin Albumin/Globulin Ratio Lipase Urine Color YELLOW Urine Clarity CLEAR Urine pH 7.5 Ur Specific [place] 1.015 Urine Protein NEGATIVE Urine Glucose (UA) NEGATIVE Urine Ketones NEGATIVE Urine Occult Blood MODERATE H Urine Nitrite NEGATIVE Urine Bilirubin NEGATIVE Urine Urobilinogen 0.2 (NORMAL) Ur Leukocyte Esterase NEGATIVE Urine RBC 6-10 H Urine WBC 0-3 Ur Squamous Epith Cells RARE Squamous Urine Bacteria Rare Ur Microscopic Review INDICATED Urine Culture Comments NOT INDICATED - Rads (name of study) pelvic US Relevant Findings:: Final report received, See rad report PD Medical Decision Making - ED course Complexity details: reviewed results, re-evaluated patient, considered differential, d/w patient, d/w audit consultant ED course: Pelvic ultrasound appears the patient has continued blood and clots in the uterus. No significant lab abnormalities. Hemoglobin is dropped from 11-10 over the past 5 days. Consulted JUNIOR MANUFACTURING ENGINEER, Dr. Marie, He evaluated the patient and will take the patient to the operating room for hysteroscopy. This document was made in part using voice recognition software. While efforts are made to proofread this document, sound alike and grammatical errors may occur. Departure - Departure Disposition: ED Transfer to [facility] Clinical Impression: bleeding Qualifiers: hemorrhage type: unspecified Qualified Code(s): O72.1 - Other immediate hemorrhage Condition: Stable Discharge Date/Time: 12/11/22 19:54
[2022-12-11 17:07] LABS: BASOPHILS % (AUTO) 0.2 %; EOSINOPHILS # (AUTO) 0.1 10^3/uL (0.0-0.7); HCT - HEMATOCRIT 32.4 % (37.0-47.0); HGB - HEMOGLOBIN 10.1 g/dL (12.0-16.0); LYMPHOCYTES # (AUTO) 1.7 10^3/uL (1.5-3.5); LYMPHOCYTES % (AUTO) 17.1 %; MEAN CORPUSCULAR HEMOGLOBIN 26.8 pg (27.0-31.0); MEAN CORPUSCULAR HGB CONC 31.2 g/dL (32.0-36.0); MEAN CORPUSCULAR VOLUME 85.9 fL (81.0-99.0); MEAN PLATELET VOLUME 11.3 fL (7.9-10.8); MONOCYTES # (AUTO) 0.5 10^3/uL (0.0-1.0); MONOCYTES % (AUTO) 5.5 %; NEUTROPHILS # (AUTO) 7.4 10^3/uL (1.5-6.6); NEUTROPHILS % (AUTO) 75.9 %; PLT - PLATELET COUNT 249 10^3/uL (130-450); RED BLOOD COUNT 3.77 10^6/uL (4.20-5.40); RED CELL DISTRIBUTION WIDTH 13.4 % (12.0-15.0); WHITE BLOOD COUNT 9.8 x10^3/uL (4.8-10.8)
[2022-12-11 17:09] LABS: BILIRUBIN,URINE NEGATIVE (NEGATIVE); CLARITY,URINE CLEAR (CLEAR); GLUCOSE, URINE (UA) NEGATIVE (NEGATIVE); KETONES,URINE (UA) NEGATIVE (NEGATIVE); LEUKOCYTE ESTERASE, URINE NEGATIVE (NEGATIVE); NITRITE,URINE NEGATIVE (NEGATIVE); OCCULT BLOOD,URINE MODERATE (NEGATIVE); PH,URINE 7.5 PH (5.0-7.5); PROTEIN,URINE NEGATIVE (NEGATIVE); UROBILINOGEN,URINE 0.2 (NORMAL) E.U./dL (NORMAL)
[2022-12-11 17:15] LABS: PT - PROTHROMBIN TIME 11.6 secs (9.9-12.6)
[2022-12-11 17:18] LABS: ALBUMIN 3.9 g/dL (3.2-5.5); ALBUMIN/GLOBULIN RATIO 1.1 (1.0-2.2); BACTERIA,URINE Rare /HPF (None Seen); BILIRUBIN,TOTAL 0.5 mg/dL (0.2-1.0); CALCIUM 8.7 mg/dL (8.5-10.3); CREATININE 0.6 mg/dL (0.4-1.0); POTASSIUM 3.6 mmol/L (3.5-5.0); SQUAMOUS EPITHELIAL CELL,UR RARE Squamous (<= Few); TOTAL PROTEIN 7.5 g/dL (6.7-8.2); WBC,URINE 0-3 /HPF (0-5)
[2022-12-11] MEDS ORDERED: ACETAMINOPHEN 325 MG TABLET PO STA (17:22)
[2022-12-11 17:23] LABS: PARTIAL THROMBOPLASTIN TIME 26.4 secs (24.9-33.3)
[2022-12-11] MEDS ORDERED: SODIUM CHLORIDE 0.9% 1,000 ML IV STA (17:24)
--- NOTE | 2022-12-11 18:30 | Ultrasound Report ---
PROCEDURE: Pelvic w/Doppler Complete INDICATIONS: vaginal bleeding s/p d c TECHNIQUE: Transabdominal evaluation of the pelvis was performed utilizing amaya scale and color Doppl er imaging. COMPARISON: None. FINDINGS: The uterus is anteverted measuring 9.4 x 6.9 x 10.4 4 cm. No suspicious intraparenchymal mass. Within the endometrium is heterogeneous nonvascular tissue measuring 3.0 cm in thickness. The right ovary measures 2.0 x 2.5 x 2.2 cm. The left ovary measures 1.8 x 0.7 x 1.0 cm. No suspiciou s cystic or solid mass. Normal vascularity. No significant pelvic free fluid. IMPRESSION: Nonvascular heterogeneous debris noted within the endometrium likely representing blood products. No definite vascularity to suggest retained products of conception. Reviewed by: Christofer Peterson DO on 12/11/2022 5:28 PM [place] Approved by: Christofer Peterson DO on 12/11/2022 5:28 PM [place] Station ID: [id number]
[2022-12-11] MEDS ORDERED: MORPHINE 2 MG/ML CARPUJECT IVP PRN (18:59)
[2022-12-11] MEDS ORDERED: ATROPINE ABBOJECT 1 MG/10 ML SYRINGE IVP PRN (18:59)
[2022-12-11] MEDS ORDERED: METOCLOPRAMIDE 10 MG/2 ML VIAL IVP PRN (18:59)
[2022-12-11] MEDS ORDERED: ePHEDrine 50 MG/ML VIAL IVP PRN (18:59)
[2022-12-11] MEDS ORDERED: HYDROmorphone 0.5 MG/0.5 ML SYRINGE IVP PRN (18:59)
[2022-12-11] MEDS ORDERED: ONDANSETRON 4 MG/2 ML VIAL IVP PRN ×2 (18:59→21:51)
[2022-12-11] MEDS ORDERED: fentaNYL 100 MCG/2 ML VIAL IVP PRN (18:59)
[2022-12-11] MEDS ORDERED: NALOXONE 0.4 MG/ML VIAL IVP PRN (18:59)
--- NOTE | 2022-12-11 18:59 | ANESTHESIA ---
Pre-Anesthesia VS, & Labs - Diagnosis d aND c - Procedure POST HEMMORAGE Vital Signs: Temp Pulse Resp BP Pulse Ox O2 Flow Rate 37.9 C 103 H 16 114/73 99 12/11/22 16:30 12/11/22 16:30 12/11/22 16:30 12/11/22 16:30 12/11/22 16:30 Height: 5 ft 3 in Weight (kg): 68.039 kg Body Mass Index: 26.5 BMI Classification: Overweight - NPO Other (1 pm) - Is Patient ?: No - Lab Results Current Lab Results: Laboratory Tests 12/11/22 16:58: PT 11.6, INR 1.0, APTT 26.4 12/11/22 16:58: Sodium 142, Potassium 3.6, Chloride 107, Carbon Dioxide 27, Anion Gap 8.0, BUN 12, Creatinine 0.6, Estimated GFR (MDRD) 115, Glucose 101 H, Calcium 8.7, Total Bilirubin 0.5, AST 27, ALT 37, Alkaline Phosphatase 74, Total Protein 7.5, Albumin 3.9, Globulin 3.6, Albumin/Globulin Ratio 1.1, Lipase 34 12/11/22 16:58: WBC 9.8, RBC 3.77 L, Hgb 10.1 L, Hct 32.4 L, MCV 85.9, MCH 26.8 L, MCHC 31.2 L, RDW 13.4, Plt Count 249, MPV 11.3 H, Neut # (Auto) 7.4 H, Lymph # (Auto) 1.7, [place] # (Auto) 0.5, Eos # (Auto) 0.1, Baso # (Auto) 0.0, Absolute Nucleated RBC 0.00, Nucleated RBC % 0.0 Fish Bones: 12/11/22 16:58 12/11/22 16:58 Home Medications and Allergies Ibuprofen [Motrin] 1,200 mg PO ONCE 08/31/18 Allergies/Adverse Reactions: Allergies Allergy/AdvReac Type Severity Reaction Status Date / Time No Known Drug Allergies Allergy Verified 12/11/22 16:39 Anes History & Medical History - Anesthetic History Anesthesia Complications: reports: No previous complications - Medical History Cardiovascular: reports: None Pulmonary: reports: None Gastrointestinal: reports: None Urinary: reports: Kidney stones Neuro: reports: None Musculoskeletal: reports: Chronic back pain Endocrine/Autoimmune: reports: None Blood Disorders: reports: None Skin: reports: None Smoking Status: Never smoker History of Cancer?: No - Surgical History Eyes Ears Nose Throat (EENT): reports: Tonsil/Adenoidectomy Orthopedic: reports: Other Exam General: Alert, Oriented x3 Dental: WNL Mouth Opening: Greater than 4 Fingerbreadths Neck Mobility: Normal Mallampati classification: II Thyromental Distance: greater than 6 cm Respiratory: Lungs clear Cardiovascular: Regular rate Plan Anesthesia Type: General Consent for Procedure(s) Verified and Reviewed: Yes Code Status: Attempt Resuscitation ASA classification: 2-Mild systemic disease Is this case an emergency?: Yes
[2022-12-11] MEDS ORDERED: LACTATED RINGERS 1,000 ML IV SCH ×2 (19:00→22:00)
[2022-12-11] MEDS ORDERED: PROPOFOL 200 MG/20 ML VIAL IVP ONE (19:08)
[2022-12-11] MEDS ORDERED: ROCURONIUM 50 MG/5 ML VIAL ONE (19:09)
[2022-12-11] MEDS ORDERED: fentaNYL 100 MCG/2 ML VIAL ONE ×2 (19:09→21:10)
--- NOTE | 2022-12-11 19:30 | HISTORY & PHYSICAL EXAMINATION ---
HPI - Admitted From Admitted from: ED - History Obtained From History obtained from: Patient Exam limitations: No limitations - History of Present Illness Severity at the worst: reports: Moderate Pain Quality: reports: Throbbing Context-Pain started w/: reports: Movement, Palpation, Position, Rest Timing: reports: Constant Duration: reports: Hours: Improved with: reports: Nothing Worsened by: reports: Movement (This 32-year-old 4 para 4 status post vaginal delivery on November 23 came to the emergency room because of vaginal bleeding. She had a normal full vaginal delivery and the last one was fast labor and delivery. She continued to have bleeding therefore she underwent [address] Escobar) HPI Comment/Other: This 32-year-old 4 para 4 status post vaginal delivery on November 23 came to the emergency room because of vaginal bleeding. She had a normal 4 vaginal deliveries and the last one was fast labor and delivery. She continued to have bleeding therefore she underwent a D&C by Dr. Rucker on December 06. She was brought to ER by her today and stating that she has been bleeding heavier and pain become unbearable. At the emergency room she underwent pelvic ultrasound which showed some echogenic structure in the endometrium and pathology report is not available yet. She and her were insisting that we need to do something because this is not usual for her. She experienced 3 courses in the past and this is a very different and she cannot function well. Her lab does not show any strong evidence of infection and hemoglobin decreased slightly but not markedly. After long discussion we agreed to do a hysteroscopic examination to prove that there is no retained placental tissue. When Dr. Marie did D&C she did check the endometrial cavity with ultrasound twice and it was reported as a negative. PMH/PSH - Past Medical History Cardiovascular: positive: None Respiratory: positive: None Neuro: positive: None Endocrine/Autoimmune: positive: None GI: positive: None INSURANCE COORDINATOR: positive: None : positive: Kidney stones HEENT: positive: None Psych: positive: None Musculoskeletal: positive: Chronic back pain Derm: positive: None MRSA Hx?: No - Past Surgical History Ortho: positive: Other HEENT: positive: Tonsil/Adenoidectomy Social & Family Hx - Social History Does the pt smoke?: No Smoking Status: Never smoker Does the pt drink ETOH?: No Does the pt have substance abuse?: No - POLST Patient has POLST: No Meds/Allgy - Home Medications Home Medications: Ambulatory Orders Medication Instructions Recorded Confirmed Ibuprofen [Motrin] 1,200 mg PO ONCE 08/31/18 12/06/22 - Allergies Allergies/Adverse Reactions: Allergies Allergy/AdvReac Type Severity Reaction Status Date / Time No Known Drug Allergies Allergy Verified 12/11/22 16:39 Review of Systems - Constitutional Constitutional: reports: Fatigue, Malaise, Weakness - Neurological Neurological: reports: General weakness - Hematologic/Lymphatic Hematologic/Lymphatic: reports: Anemia - All Other Systems All Other Systems: reports: Reviewed and negative Exam - Vital Signs Reviewed Vital Signs: Yes Vital Signs: Vital Signs x48h Temp Pulse Resp BP Pulse Ox 12/11/22 19:00 98 18 118/78 99 12/11/22 16:30 100.2 F 103 H 16 114/73 99 - Physical Exam General Appearance: positive: Mild distress Eyes Bilateral: positive: Normal inspection ENT: positive: ENT inspection nml Neck: positive: Nml inspection Respiratory: positive: Chest non-tender Cardiovascular: positive: Regular rate & rhythm Abdomen: positive: Tenderness (Suprapubic area) Back: positive: Nml inspection Skin: positive: Color nml Extremities: positive: Non-tender Neurologic/Psychiatric: positive: Oriented x3 Results - Lab Results Fish Bones: 12/11/22 16:58 12/11/22 16:58 Other Lab Results: Lab Results x24hrs 12/11/22 12/11/22 12/11/22 Range/Units 16:58 16:58 16:58 WBC (4.8-10.8) x10^3/uL RBC (4.20-5.40) 10^6/uL Hgb (12.0-16.0) g/dL Hct (37.0-47.0) % MCV (81.0-99.0) fL MCH (27.0-31.0) pg MCHC (32.0-36.0) g/dL RDW (12.0-15.0) % Plt Count (130-450) 10^3/uL MPV (7.9-10.8) fL Neut # (Auto) (1.5-6.6) 10^3/uL Lymph # (Auto) (1.5-3.5) 10^3/uL [place] # (Auto) (0.0-1.0) 10^3/uL Eos # (Auto) (0.0-0.7) 10^3/uL Baso # (Auto) (0.0-0.1) 10^3/uL Absolute Nucleated RBC x10^3/uL Nucleated RBC % /100WBC PT 11.6 (9.9-12.6) secs INR 1.0 (0.8-1.2) APTT 26.4 (24.9-33.3) secs Sodium 142 (135-145) mmol/L Potassium 3.6 (3.5-5.0) mmol/L Chloride 107 (101-111) mmol/L Carbon Dioxide 27 (21-32) mmol/L Anion Gap 8.0 (6-13) BUN 12 (6-20) mg/dL Creatinine 0.6 (0.4-1.0) mg/dL Estimated GFR (MDRD) 115 (>89) Glucose 101 H (70-100) mg/dL Calcium 8.7 (8.5-10.3) mg/dL Total Bilirubin 0.5 (0.2-1.0) mg/dL AST 27 (10-42) IU/L ALT 37 (10-60) IU/L Alkaline Phosphatase 74 (42-121) IU/L Total Protein 7.5 (6.7-8.2) g/dL Albumin 3.9 (3.2-5.5) g/dL Globulin 3.6 (2.1-4.2) g/dL Albumin/Globulin Ratio 1.1 (1.0-2.2) Lipase 34 (22-51) U/L Urine Color YELLOW Urine Clarity CLEAR (CLEAR) Urine pH 7.5 (5.0-7.5) PH Ur Specific [place] 1.015 (1.002-1.030) Urine Protein NEGATIVE (NEGATIVE) mg/dL Urine Glucose (UA) NEGATIVE (NEGATIVE) mg/dL Urine Ketones NEGATIVE (NEGATIVE) mg/dL Urine Occult Blood MODERATE H (NEGATIVE) Urine Nitrite NEGATIVE (NEGATIVE) Urine Bilirubin NEGATIVE (NEGATIVE) Urine Urobilinogen 0.2 (NORMAL) (NORMAL) E.U./dL Ur Leukocyte Esterase NEGATIVE (NEGATIVE) Urine RBC 6-10 H (0-5) /HPF Urine WBC 0-3 (0-5) /HPF Ur Squamous Epith Cells RARE Squamous (<= Few) Urine Bacteria Rare (None Seen) /HPF Ur Microscopic Review INDICATED Urine Culture Comments NOT INDICATED 12/11/22 Range/Units 16:58 WBC 9.8 (4.8-10.8) x10^3/uL RBC 3.77 L (4.20-5.40) 10^6/uL Hgb 10.1 L (12.0-16.0) g/dL Hct 32.4 L (37.0-47.0) % MCV 85.9 (81.0-99.0) fL MCH 26.8 L (27.0-31.0) pg MCHC 31.2 L (32.0-36.0) g/dL RDW 13.4 (12.0-15.0) % Plt Count 249 (130-450) 10^3/uL MPV 11.3 H (7.9-10.8) fL Neut # (Auto) 7.4 H (1.5-6.6) 10^3/uL Lymph # (Auto) 1.7 (1.5-3.5) 10^3/uL [place] # (Auto) 0.5 (0.0-1.0) 10^3/uL Eos # (Auto) 0.1 (0.0-0.7) 10^3/uL Baso # (Auto) 0.0 (0.0-0.1) 10^3/uL Absolute Nucleated RBC 0.00 x10^3/uL Nucleated RBC % 0.0 /100WBC PT (9.9-12.6) secs INR (0.8-1.2) APTT (24.9-33.3) secs Sodium (135-145) mmol/L Potassium (3.5-5.0) mmol/L Chloride (101-111) mmol/L Carbon Dioxide (21-32) mmol/L Anion Gap (6-13) BUN (6-20) mg/dL Creatinine (0.4-1.0) mg/dL Estimated GFR (MDRD) (>89) Glucose (70-100) mg/dL Calcium (8.5-10.3) mg/dL Total Bilirubin (0.2-1.0) mg/dL AST (10-42) IU/L ALT (10-60) IU/L Alkaline Phosphatase (42-121) IU/L Total Protein (6.7-8.2) g/dL Albumin (3.2-5.5) g/dL Globulin (2.1-4.2) g/dL Albumin/Globulin Ratio (1.0-2.2) Lipase (22-51) U/L Urine Color Urine Clarity (CLEAR) Urine pH (5.0-7.5) PH Ur Specific [place] (1.002-1.030) Urine Protein (NEGATIVE) mg/dL Urine Glucose (UA) (NEGATIVE) mg/dL Urine Ketones (NEGATIVE) mg/dL Urine Occult Blood (NEGATIVE) Urine Nitrite (NEGATIVE) Urine Bilirubin (NEGATIVE) Urine Urobilinogen (NORMAL) E.U./dL Ur Leukocyte Esterase (NEGATIVE) Urine RBC (0-5) /HPF Urine WBC (0-5) /HPF Ur Squamous Epith Cells (<= Few) Urine Bacteria (None Seen) /HPF Ur Microscopic Review Urine Culture Comments - Diagnostic Imaging Results Diagnostic Imaging Results: positive: Prelim report reviewed Impression/Plan - Problem List Problem List: Delayed bleeding with the tenderness Plan: Hysteroscopic examination under anesthesia
[2022-12-11] MEDS ORDERED: BUPIVACAINE 0.25% PF 10 ML VIAL ONE (19:40)
[2022-12-11] MEDS ORDERED: ONDANSETRON 4 MG/2 ML VIAL ONE (20:01)
[2022-12-11] MEDS ORDERED: ceFAZolin 1 GM VIAL ONE (20:01)
[2022-12-11] MEDS ORDERED: DEXAMETHASONE 4 MG/ML VIAL ONE (20:01)
[2022-12-11] MEDS ORDERED: TRANEXAMIC ACID 1,000 MG/10 ML VIAL ONE (20:36)
[2022-12-11] MEDS ORDERED: NEOSTIGMINE 1 MG/1 ML 10 ML MDV ONE (21:03)
[2022-12-11] MEDS ORDERED: GLYCOPYRROLATE 1 MG/5 ML VIAL ONE (21:03)
--- NOTE | 2022-12-11 21:07 | OPERATIVE REPORT ---
Operative Report - General Procedure Date: 12/11/22 Planned Procedure: Hysteroscopic examination and curettage Pre-Op Diagnosis: bleeding Procedure Performed: Hysteroscopic examination and suction curettage Post Op Diagnosis: The same - Procedure Note Primary Surgeon: Dr. Marie Anesthesia Provider: YONATHAN Anesthesia Technique: General ET tube Pathology: Uterine contents Estimated Blood Loss (mL): 250 Indications: bleeding Findings: Uterine cavity: 14 cm Blood clots in the cavity Complications: None - Other Other Information/Narrative: Indications for the procedure History: Mrs. Patino 32-year-old 4 para 4 with 2 weeks 4 days post who bled after her vaginal delivery. She underwent D&C on 12-06, and she was brought by her to ER because her bleeding became worse. Surgical risks: The patient was informed of the risks and benefits of the procedure. Risks included but were not limited to bleeding, infection, injury to the vulva, vagina, or cervix, and uterine perforation. The patient expressed understanding of the risks involved, all questions were answered, and the patient consented to the procedure. Description of procedure The patient was taken to the operating room where a timeout was performed to confirm correct patient and correct procedure. The patient was given preoperative prophylactic intravenous antibiotics. The patient was given general anesthesia. When the anesthesia was found to be adequate. The patient was then positioned on the operating table in the dorsal lithotomy position with the legs supported using stirrups. All pressure points were padded and a bear hugger was placed to maintain control of core body temperature. The patient was then prepped and draped in the usual sterile fashion. A bimanual exam was performed and the uterus was found to be approximately 12 weeks size mid position. The cervix was noted to be already dilated. No palpable adnexal mass was noted. A straight catheter was not inserted into the bladder. Operative technique: A weighted speculum was inserted into the vagina and the cervix was visualized and grasped using the single-tooth tenaculum. The uterus was sounded and found to be 14 centimeter. The cervix then adequately dilated for the introduction of the 9 mm suction.. The suction curette was advanced to the fundus and then suction was applied and the curette was rotated in a circular fashion as the curette was withdrawn. The suction was relieved at the internal os and a curette was again advanced to the fundus. This was repeated 3 times. When no further products were obtained, the suction curette was withdrawn, and a sharp curette was advanced to the fundus. The uterus was curetted in a systematic manner covering all surfaces until a gritty texture was noted throughout. Hysteroscope was introduced and uterine cavity was visualized through the scope camera.The uterine cavity was well visualized the endometrium was a free from any attachments or remaining productive of conception but she still has a large amount of blood clot. The suction curette was introduced one final time and the uterine cavity was cleared of any remaining products or curettings. The suction curette was then withdrawn and the single-tooth tenaculum was removed from the anterior lip of the cervix. Good hemostasis was noted. Fluid loss or deficiency was not significant Because the fluid came out through the open cervix and no fluid remained in intrauterine cavity due to not completely closed cervix. The weighted retractor was then removed from the vagina. At the completion of the procedure all needle, sponge, and instrument counts were noted to be correct x2. The patient tolerated the procedure well and was transferred to the recovery room in stable condition. EBL: 250 ml
[2022-12-11] MEDS ORDERED: LACTATED RINGERS 1,000 ML IV ONE (21:10)
--- NOTE | 2022-12-11 21:39 | ANESTHESIA POST OP EVALUATION ---
Anesthesia Post Eval - Post Anesthesia Eval Vitals: Last Vital Signs Temp 37.1 C 12/11/22 21:30 Pulse 79 12/11/22 21:30 Resp 14 12/11/22 21:30 BP 119/65 12/11/22 21:30 Pulse Ox 100 12/11/22 21:30 O2 Flow Rate CV Function Including HR & BP: Stable Pain Control: Satisfactory Nausea & Vomiting: Negative Mental Status: Baseline Respiratory Status: Airway Patent Hydration Status: Satisfactory Anesthesia Complications: None
[2022-12-11] MEDS ORDERED: oxyCODONE 5 MG TABLET PO PRN (21:51)
[2022-12-11] MEDS ORDERED: ACETAMINOPHEN 500 MG TABLET PO SCH (22:00)
[2022-12-11] MEDS: IBUPROFEN 600 MG TABLET PO SCH (23:09)
[2022-12-12] MEDS: IBUPROFEN 600 MG TABLET PO SCH (05:27)
[2022-12-12 05:46] LABS: ALBUMIN 3.1 g/dL (3.2-5.5); ALBUMIN/GLOBULIN RATIO 1.1 (1.0-2.2); BILIRUBIN,TOTAL 0.3 mg/dL (0.2-1.0); CALCIUM 8.1 mg/dL (8.5-10.3); CREATININE 0.6 mg/dL (0.4-1.0); POTASSIUM 4.2 mmol/L (3.5-5.0); TOTAL PROTEIN 5.8 g/dL (6.7-8.2)
[2022-12-12 06:51] VITALS: BP 112/69
--- NOTE | 2022-12-12 06:58 | PROVIDER PROGRESS NOTE ---
Progress Note Postop follow-up checkup Hemoglobin was reported as 7.7 this morning She described her pain scale as 1-2 out of 10 during the night and this morning and she complained about headache scale as 4/10 Her vaginal bleeding was minimum during the night She is nursing the baby and using breast pump as needed. We discussed about the future management plan She will consider to receive iron infusion if symptoms are getting worse She will be checked at the clinic either Tuesday or Tuesday Blood transfusion was also discussed and we are going to postpone at this time Prescription of Tylenol ibuprofen and ferrous sulfate will be sent to her pharmacy In cases she noticed some increased bleeding then will consider to start Lystieda to control bleeding and she and her understood. Her vital signs normal and she showed 112/69 and pulsation is 89 Assessment: bleeding,Postop day 1, anemia due to acute blood loss Plan: Home today and follow-up at the office next week.
--- NOTE | 2022-12-12 07:06 | Discharge Plan ---
Discharge Plan Problem Reviewed?: Yes Disposition: Home, Self Care Condition: Stable Prescriptions: Acetaminophen [Acetaminophen Extra Strength] 1,000 mg PO Q8H PRN #60 tablet PRN Reason: Pain Ferrous Sulfate 325 mg PO BID #60 tab Ibuprofen [Motrin] 600 mg PO Q6H PRN #30 tab PRN Reason: Pain Diet: Regular Activity Restrictions: Activity as Tolerated Shower Restrictions: No Driving Restrictions: Yes (until check) Weight Bearing: Partial Weight No Smoking: If you smoke, Please STOP! Call for help. Follow-up with: Cynthia Rucker DO [Provider Admit Priv/Credential] -
[2022-12-12] MEDS ORDERED: DOCUSATE SODIUM 100 MG CAPSULE PO SCH (09:00)
== END 2022-12-12 07:35 | disposition home or self-care (01) ==
LOC: ED 16:24 → SDS 18:58 → FBP 21:08 → SDS 12-12 07:35
PROVIDERS: ATTEND Obstetrics & Gynecology
PROC: 0UDB7ZZ Extraction of Endometrium, Via Natural or Artificial Opening (ICD-10-PCS; principal; 2022-12-11 20:00)
DX: O72.2 Delayed and secondary postpartum hemorrhage (principal); O88.23 Thromboembolism in the puerperium; R53.1 Weakness; O90.81 Anemia of the puerperium; D62 Acute posthemorrhagic anemia
CPT/HCPCS: 36415; 59160; 76856; 80053; 81001; 83690; 85018; 85025; 85610; 85730; 93975; 99284; 99285; A9270; J7120; 81003; 87086

== ENCOUNTER 2022-12-15 10:05 | Outpatient (CLI) | payer MEDICAID ==
[2022-12-15 10:22] VITALS: BP 110/69
[2022-12-15] MEDS: FERRIC GLUCONATE 125 MG in SODIUM CHLORIDE 0.9% 100ML 100 ML IV ONE (10:59)
--- NOTE | 2022-12-15 12:30 | Labor Flowsheet ---
Labor Flowsheet Datetime Report Generated by CPN: 12/15/2022 12:30 Datetime: 12/15/2022 10:19 VITAL SIGNS NBP Sys/Sarah/Mean (mmHg): 110 : 69 : 79 Pulse: 78 Datetime: 11/24/2022 08:30 SpO2 (%): 100 Datetime: 11/23/2022 05:01 Membranes Ruptured Date/Time: 11/22/2022 23:20 Membranes Rupture Method: Spontaneous Amniotic Fluid Color: Clear Amniotic Fluid Amount: Scant Amniotic Fluid Odor: Normal Cervical Ripening Agents Other: none Datetime: 11/23/2022 02:31 Temperature (C): 36.6 Datetime: 11/23/2022 02:30 PAIN Pain Scale: 4 Datetime: 11/23/2022 01:53 Stage of : Recovery Datetime: 11/23/2022 01:52 Temperature Route: Oral Stage 2 Comments: Placenta spont expelled Datetime: 11/23/2022 01:46 LaborFlag: Labor Datetime: 11/23/2022 01:40 UTERINE ACTIVITY Monitor Mode: Palpation Frequency (min): 1.5-2.5 Quality: Strong Duration (sec): 60-80 Pattern: Normal: <= 5 Contractions in 10 Minutes Resting Tone (Palpate): Relaxed FHR Baseline Rate : 135 FHR Baseline Changes: No Baseline Change Variability: Moderate 6-25 bpm Accelerations: 15X15 Decelerations: Variable Category: Category II Datetime: 11/23/2022 01:35 STAGE 2 Pushing: Coached on Pushing; Urge to Push Pushing Position: Pushing with Contractions Datetime: 11/23/2022 01:30 Contraction Comments: sitting on side of bed, hunched over for epidural placement ASSESSMENT A Monitor Mode: External US COMMUNICATION Communication: Provider at Bedside Provider Notified (Name): [place] Datetime: 11/23/2022 01:24 Notification Reason: Labor Status Datetime: 11/23/2022 01:21 VAGINAL EXAM Dilatation (cm): 10.0 Effacement (%): 90 Station: 2 Exam by: H. Heri, RN Datetime: 11/23/2022 01:18 Epidural Procedure Other: Pump Started Datetime: 11/23/2022 01:11 Epidural Procedure: Test Dose Datetime: 11/23/2022 01:09 ANESTHESIA Anesthesia Plans: Epidural Epidural Positioning: Sitting Datetime: 11/23/2022 01:07 Respirations: 19 Datetime: 11/23/2022 01:05 MEDICATIONS Antiemetics/Antacids: Zofran (mg) @ 4 Datetime: 11/23/2022 00:53 PATIENT CARE IV/Blood Work: IV Started; IV Bolus Given ml @ 999
== END 2022-12-15 12:00 | disposition home or self-care (01) ==
LOC: WFO 10:05 → FBP 10:10 → WFO 12:00
PROVIDERS: ATTEND Obstetrics & Gynecology
DX: O72.2 Delayed and secondary postpartum hemorrhage (principal); O90.81 Anemia of the puerperium; D50.9 Iron deficiency anemia, unspecified

== ENCOUNTER 2022-12-22 09:41 | Outpatient (CLI) | payer MEDICAID ==
[2022-12-22 10:19] VITALS: BP 112/57
[2022-12-22] MEDS: FERRIC GLUCONATE 125 MG in SODIUM CHLORIDE 0.9% 100ML 100 ML IV ONE (10:37)
--- NOTE | 2022-12-22 16:49 | Labor Flowsheet ---
Labor Flowsheet Datetime Report Generated by CPN: 12/22/2022 16:49 Datetime: 12/22/2022 09:59 VITAL SIGNS NBP Sys/Sarah/Mean (mmHg): 112 : 57 : 70 Pulse: 80 Datetime: 11/24/2022 08:30 SpO2 (%): 100 Datetime: 11/23/2022 05:01 Membranes Ruptured Date/Time: 11/22/2022 23:20 Membranes Rupture Method: Spontaneous Amniotic Fluid Color: Clear Amniotic Fluid Amount: Scant Amniotic Fluid Odor: Normal Cervical Ripening Agents Other: none Datetime: 11/23/2022 02:31 Temperature (C): 36.6 Datetime: 11/23/2022 02:30 PAIN Pain Scale: 4 Datetime: 11/23/2022 01:53 Stage of : Recovery Datetime: 11/23/2022 01:52 Temperature Route: Oral Stage 2 Comments: Placenta spont expelled Datetime: 11/23/2022 01:46 LaborFlag: Labor Datetime: 11/23/2022 01:40 UTERINE ACTIVITY Monitor Mode: Palpation Frequency (min): 1.5-2.5 Quality: Strong Duration (sec): 60-80 Pattern: Normal: <= 5 Contractions in 10 Minutes Resting Tone (Palpate): Relaxed FHR Baseline Rate : 135 FHR Baseline Changes: No Baseline Change Variability: Moderate 6-25 bpm Accelerations: 15X15 Decelerations: Variable Category: Category II Datetime: 11/23/2022 01:35 STAGE 2 Pushing: Coached on Pushing; Urge to Push Pushing Position: Pushing with Contractions Datetime: 11/23/2022 01:30 Contraction Comments: sitting on side of bed, hunched over for epidural placement ASSESSMENT A Monitor Mode: External US COMMUNICATION Communication: Provider at Bedside Provider Notified (Name): [place] Datetime: 11/23/2022 01:24 Notification Reason: Labor Status Datetime: 11/23/2022 01:21 VAGINAL EXAM Dilatation (cm): 10.0 Effacement (%): 90 Station: 2 Exam by: H. Heri, RN Datetime: 11/23/2022 01:18 Epidural Procedure Other: Pump Started Datetime: 11/23/2022 01:11 Epidural Procedure: Test Dose Datetime: 11/23/2022 01:09 ANESTHESIA Anesthesia Plans: Epidural Epidural Positioning: Sitting Datetime: 11/23/2022 01:07 Respirations: 19 Datetime: 11/23/2022 01:05 MEDICATIONS Antiemetics/Antacids: Zofran (mg) @ 4 Datetime: 11/23/2022 00:53 PATIENT CARE IV/Blood Work: IV Started; IV Bolus Given ml @ 999
== END 2022-12-22 12:08 | disposition home or self-care (01) ==
LOC: WFO 09:41 → MAC 09:45 → EDSTATUS 09:45 → FBP 09:51 → MAC 09:51 → WFO 12:08 → FBP 13:17
PROVIDERS: ATTEND Nurse Practitioner
DX: O72.2 Delayed and secondary postpartum hemorrhage (principal); O90.81 Anemia of the puerperium; D50.9 Iron deficiency anemia, unspecified
CPT/HCPCS: 96365; J2916

== ENCOUNTER 2022-12-29 09:57 | Outpatient (CLI) | payer MEDICAID ==
[2022-12-29 10:24] LABS: BASOPHILS % (AUTO) 0.5 %; EOSINOPHILS # (AUTO) 0.1 10^3/uL (0.0-0.7); EOSINOPHILS % (AUTO) 1.3 %; HCT - HEMATOCRIT 33.6 % (37.0-47.0); HGB - HEMOGLOBIN 10.1 g/dL (12.0-16.0); LYMPHOCYTES # (AUTO) 1.7 10^3/uL (1.5-3.5); LYMPHOCYTES % (AUTO) 31.7 %; MEAN CORPUSCULAR HEMOGLOBIN 25.8 pg (27.0-31.0); MEAN CORPUSCULAR HGB CONC 30.1 g/dL (32.0-36.0); MEAN CORPUSCULAR VOLUME 85.9 fL (81.0-99.0); MONOCYTES # (AUTO) 0.3 10^3/uL (0.0-1.0); MONOCYTES % (AUTO) 4.9 %; NEUTROPHILS # (AUTO) 3.4 10^3/uL (1.5-6.6); NEUTROPHILS % (AUTO) 61.4 %; PLT - PLATELET COUNT 269 10^3/uL (130-450); RED BLOOD COUNT 3.91 10^6/uL (4.20-5.40); RED CELL DISTRIBUTION WIDTH 14.9 % (12.0-15.0); WHITE BLOOD COUNT 5.5 x10^3/uL (4.8-10.8)
[2022-12-29] MEDS ORDERED: FERRIC GLUCONATE 125 MG in SODIUM CHLORIDE 0.9% 100ML 100 ML IV ONE (10:30)
[2022-12-29 11:53] VITALS: BP 103/64
--- NOTE | 2022-12-29 11:56 | Labor Flowsheet ---
Labor Flowsheet Datetime Report Generated by CPN: 12/29/2022 11:56 Datetime: 12/22/2022 09:59 VITAL SIGNS NBP Sys/Sarah/Mean (mmHg): 112 : 57 : 70 Pulse: 80 Datetime: 11/24/2022 08:30 SpO2 (%): 100 Datetime: 11/23/2022 05:01 Membranes Ruptured Date/Time: 11/22/2022 23:20 Membranes Rupture Method: Spontaneous Amniotic Fluid Color: Clear Amniotic Fluid Amount: Scant Amniotic Fluid Odor: Normal Cervical Ripening Agents Other: none Datetime: 11/23/2022 02:31 Temperature (C): 36.6 Datetime: 11/23/2022 02:30 PAIN Pain Scale: 4 Datetime: 11/23/2022 01:53 Stage of : Recovery Datetime: 11/23/2022 01:52 Temperature Route: Oral Stage 2 Comments: Placenta spont expelled Datetime: 11/23/2022 01:46 LaborFlag: Labor Datetime: 11/23/2022 01:40 UTERINE ACTIVITY Monitor Mode: Palpation Frequency (min): 1.5-2.5 Quality: Strong Duration (sec): 60-80 Pattern: Normal: <= 5 Contractions in 10 Minutes Resting Tone (Palpate): Relaxed FHR Baseline Rate : 135 FHR Baseline Changes: No Baseline Change Variability: Moderate 6-25 bpm Accelerations: 15X15 Decelerations: Variable Category: Category II Datetime: 11/23/2022 01:35 STAGE 2 Pushing: Coached on Pushing; Urge to Push Pushing Position: Pushing with Contractions Datetime: 11/23/2022 01:30 Contraction Comments: sitting on side of bed, hunched over for epidural placement ASSESSMENT A Monitor Mode: External US COMMUNICATION Communication: Provider at Bedside Provider Notified (Name): [place] Datetime: 11/23/2022 01:24 Notification Reason: Labor Status Datetime: 11/23/2022 01:21 VAGINAL EXAM Dilatation (cm): 10.0 Effacement (%): 90 Station: 2 Exam by: H. Heri, RN Datetime: 11/23/2022 01:18 Epidural Procedure Other: Pump Started Datetime: 11/23/2022 01:11 Epidural Procedure: Test Dose Datetime: 11/23/2022 01:09 ANESTHESIA Anesthesia Plans: Epidural Epidural Positioning: Sitting Datetime: 11/23/2022 01:07 Respirations: 19 Datetime: 11/23/2022 01:05 MEDICATIONS Antiemetics/Antacids: Zofran (mg) @ 4 Datetime: 11/23/2022 00:53 PATIENT CARE IV/Blood Work: IV Started; IV Bolus Given ml @ 999
--- NOTE | 2022-12-29 16:48 | PROVIDER PROGRESS NOTE ---
Subjective - Prog Note Date Prog Note Date: 12/29/22 Objective - Vital Signs/Intake & Output Vital Signs: Vital Signs x48h Temp Pulse Resp BP Pulse Ox 12/29/22 10:29 97.9 F 72 14 103/64 100 12/29/22 10:26 97.9 F Intake & Output: Intake & Output 12/26/22 12/27/22 12/28/22 12/29/22 23:59 23:59 23:59 23:59 Intake Total 110 Balance 110 - Lab Results Fish Bones: 12/29/22 10:15 Other Labs: Lab Results x24hrs 12/29/22 Range/Units 10:15 WBC 5.5 (4.8-10.8) x10^3/uL RBC 3.91 L (4.20-5.40) 10^6/uL Hgb 10.1 L (12.0-16.0) g/dL Hct 33.6 L (37.0-47.0) % MCV 85.9 (81.0-99.0) fL MCH 25.8 L (27.0-31.0) pg MCHC 30.1 L (32.0-36.0) g/dL RDW 14.9 (12.0-15.0) % Plt Count 269 (130-450) 10^3/uL MPV 11.0 H (7.9-10.8) fL Neut # (Auto) 3.4 (1.5-6.6) 10^3/uL Lymph # (Auto) 1.7 (1.5-3.5) 10^3/uL [place] # (Auto) 0.3 (0.0-1.0) 10^3/uL Eos # (Auto) 0.1 (0.0-0.7) 10^3/uL Baso # (Auto) 0.0 (0.0-0.1) 10^3/uL Absolute Nucleated RBC 0.00 x10^3/uL Nucleated RBC % 0.0 /100WBC Assessment/Plan - Problem List (1) Anemia, Impression: 32yo s/p 11/23/22 followed by delayed PPH treated with D&C x2 on 12/06/22 and 12/11/22. She has been receiving iron infusions for anemia. Last iron infusion given by ANGEL today.
== END 2022-12-29 11:50 | disposition home or self-care (01) ==
LOC: WFO 09:57 → FBP 09:59 → WFO 11:50
PROVIDERS: ATTEND Obstetrics & Gynecology
DX: O90.81 Anemia of the puerperium (principal)
CPT/HCPCS: 85025; 96365; J2916

== ENCOUNTER 2023-02-22 07:47 | Outpatient (CLI) | payer MEDICAID ==
[2023-02-22 11:59] LABS: BASOPHILS % (AUTO) 0.6 %; EOSINOPHILS # (AUTO) 0.1 10^3/uL (0.0-0.7); EOSINOPHILS % (AUTO) 1.3 %; HCT - HEMATOCRIT 40.5 % (37.0-47.0); HGB - HEMOGLOBIN 12.8 g/dL (12.0-16.0); LYMPHOCYTES # (AUTO) 1.8 10^3/uL (1.5-3.5); LYMPHOCYTES % (AUTO) 38.7 %; MEAN CORPUSCULAR HEMOGLOBIN 26.7 pg (27.0-31.0); MEAN CORPUSCULAR HGB CONC 31.6 g/dL (32.0-36.0); MEAN CORPUSCULAR VOLUME 84.6 fL (81.0-99.0); MEAN PLATELET VOLUME 12.4 fL (7.9-10.8); MONOCYTES # (AUTO) 0.3 10^3/uL (0.0-1.0); MONOCYTES % (AUTO) 6.3 %; NEUTROPHILS # (AUTO) 2.5 10^3/uL (1.5-6.6); NEUTROPHILS % (AUTO) 52.9 %; PLT - PLATELET COUNT 206 10^3/uL (130-450); RED BLOOD COUNT 4.79 10^6/uL (4.20-5.40); RED CELL DISTRIBUTION WIDTH 15.3 % (12.0-15.0); WHITE BLOOD COUNT 4.7 x10^3/uL (4.8-10.8)
[2023-02-22 12:22] LABS: THYROID STIMULATING HORMONE 2.03 uIU/mL (0.34-5.60)
[2023-02-22 12:27] LABS: FREE T4 (FREE THYROXINE) 0.86 ng/dL (0.58-1.64)
[2023-02-22 12:28] LABS: FERRITIN 10.2 ng/mL (11.0-306.8)
[2023-02-22 21:08] LABS: % IRON SATURATION 12 % (20-50); ALBUMIN 4.1 g/dL (3.2-5.5); ALBUMIN/GLOBULIN RATIO 1.4 (1.0-2.2); ALKALINE PHOSPHATASE 57 IU/L (42-121); ALT ALANINE AMINOTRANSFERASE 46 IU/L (10-60); AST ASPARTATE AMINOTRANSFERASE 35 IU/L (10-42); BILIRUBIN,TOTAL 0.5 mg/dL (0.2-1.0); BUN - BLOOD UREA NITROGEN 18 mg/dL (6-20); CARBON DIOXIDE - CO2 29 mmol/L (21-32); CHLORIDE 108 mmol/L (101-111); CHOL/HDL RATIO 2.2 (<4.4); CHOLESTEROL 204 mg/dL; CREATININE 0.8 mg/dL (0.4-1.0); GFR - MDRD 83 (>89); GLUCOSE 84 mg/dL (70-100); HDL CHOLESTEROL 93 mg/dL; IRON 50 ug/dL (28-170); POTASSIUM 4.3 mmol/L (3.5-5.0); SODIUM 144 mmol/L (135-145); TOTAL IRON BINDING CAPACITY 431 ug/dL (250-450); TOTAL PROTEIN 7.1 g/dL (6.7-8.2); TRANSFERRIN 308 mg/dL (192-382); TRIGLYCERIDES 35 mg/dL
== END 2023-02-22 07:48 | disposition home or self-care (01) ==
LOC: LAB.N 07:47
PROVIDERS: ATTEND Nurse Practitioner
DX: D50.9 Iron deficiency anemia, unspecified (principal); R53.83 Other fatigue; Z13.220 Encounter for screening for lipoid disorders
CPT/HCPCS: 36415; 80050; 80061; 82728; 83540; 83721; 84439; 84466

== ENCOUNTER 2023-06-27 13:42 | Outpatient (CLI) | payer OTHER ==
[2023-06-27 18:14] LABS: BASOPHILS % (AUTO) 0.5 %; EOSINOPHILS # (AUTO) 0.1 10^3/uL (0.0-0.7); EOSINOPHILS % (AUTO) 1.2 %; HCT - HEMATOCRIT 41.1 % (37.0-47.0); HGB - HEMOGLOBIN 13.2 g/dL (12.0-16.0); LYMPHOCYTES % (AUTO) 26.3 %; MEAN CORPUSCULAR HEMOGLOBIN 29.5 pg (27.0-31.0); MEAN CORPUSCULAR HGB CONC 32.1 g/dL (32.0-36.0); MEAN CORPUSCULAR VOLUME 91.9 fL (81.0-99.0); MEAN PLATELET VOLUME 12.2 fL (7.9-10.8); MONOCYTES # (AUTO) 0.5 10^3/uL (0.0-1.0); MONOCYTES % (AUTO) 6.5 %; NEUTROPHILS # (AUTO) 4.9 10^3/uL (1.5-6.6); NEUTROPHILS % (AUTO) 65.1 %; PLT - PLATELET COUNT 207 10^3/uL (130-450); RED BLOOD COUNT 4.47 10^6/uL (4.20-5.40); RED CELL DISTRIBUTION WIDTH 12.3 % (12.0-15.0); WHITE BLOOD COUNT 7.6 x10^3/uL (4.8-10.8)
[2023-06-27 18:59] LABS: FERRITIN 16.2 ng/mL (11.0-306.8)
== END 2023-06-27 13:43 | disposition home or self-care (01) ==
LOC: LAB.N 13:42
PROVIDERS: ATTEND Nurse Practitioner
DX: D50.9 Iron deficiency anemia, unspecified (principal)
CPT/HCPCS: 36415; 82728; 83540; 84466; 85025

== ENCOUNTER 2024-03-15 09:05 | Outpatient (CLI) | payer OTHER ==
[2024-03-15 12:20] LABS: BASOPHILS % (AUTO) 0.7 %; EOSINOPHILS # (AUTO) 0.1 10^3/uL (0.0-0.7); HCT - HEMATOCRIT 40.2 % (37.0-47.0); HGB - HEMOGLOBIN 13.3 g/dL (12.0-16.0); LYMPHOCYTES # (AUTO) 1.6 10^3/uL (1.5-3.5); LYMPHOCYTES % (AUTO) 26.6 %; MEAN CORPUSCULAR HGB CONC 33.1 g/dL (32.0-36.0); MEAN CORPUSCULAR VOLUME 90.5 fL (81.0-99.0); MEAN PLATELET VOLUME 11.7 fL (7.9-10.8); MONOCYTES # (AUTO) 0.4 10^3/uL (0.0-1.0); MONOCYTES % (AUTO) 6.6 %; NEUTROPHILS # (AUTO) 3.9 10^3/uL (1.5-6.6); NEUTROPHILS % (AUTO) 64.8 %; PLT - PLATELET COUNT 234 10^3/uL (130-450); RED BLOOD COUNT 4.44 10^6/uL (4.20-5.40); RED CELL DISTRIBUTION WIDTH 12.1 % (12.0-15.0); WHITE BLOOD COUNT 6.1 x10^3/uL (4.8-10.8)
[2024-03-15 12:35] LABS: ALBUMIN 4.5 g/dL (3.2-5.5); ALBUMIN/GLOBULIN RATIO 1.6 (1.0-2.2); ALKALINE PHOSPHATASE 55 IU/L (42-121); ALT ALANINE AMINOTRANSFERASE 13 IU/L (10-60); AST ASPARTATE AMINOTRANSFERASE 13 IU/L (10-42); BILIRUBIN,TOTAL 0.4 mg/dL (0.2-1.0); BUN - BLOOD UREA NITROGEN 13 mg/dL (6-20); CALCIUM 9.5 mg/dL (8.5-10.3); CARBON DIOXIDE - CO2 27 mmol/L (21-32); CHLORIDE 107 mmol/L (101-111); CHOL/HDL RATIO 2.7 (<4.4); CHOLESTEROL 175 mg/dL; CREATININE 0.8 mg/dL (0.6-1.3); CRP - C-REACTIVE PROTEIN < 0.5 mg/dL (<0.5); GFR - MDRD 82 (>89); GLUCOSE 70 mg/dL (74-104); HDL CHOLESTEROL 65 mg/dL; LDL CHOLESTEROL,CALCULATED 94 mg/dL; LDL/HDL RATIO 1.4 (<4.4); POTASSIUM 3.7 mmol/L (3.5-4.5); SODIUM 139 mmol/L (135-145); TOTAL PROTEIN 7.3 g/dL (6.4-8.9); TRIGLYCERIDES 78 mg/dL; URIC ACID 7.1 mg/dL (2.3-6.6); VLDL CHOLESTEROL 16 mg/dL
[2024-03-15 12:46] LABS: THYROID STIMULATING HORMONE 2.29 uIU/mL (0.34-5.60)
[2024-03-15 12:55] LABS: RHEUMATOID FACTOR NEGATIVE (Negative)
[2024-03-16 18:08] LABS: ANTI-DNA (DS) AB QN <1 IU/mL (0-9)
== END 2024-03-15 09:06 | disposition home or self-care (01) ==
LOC: LAB.N 09:05
PROVIDERS: ATTEND Nurse Practitioner
DX: R53.83 Other fatigue (principal); Z13.220 Encounter for screening for lipoid disorders; M54.2 Cervicalgia; M54.6 Pain in thoracic spine; Z82.61 Family history of arthritis; G89.29 Other chronic pain
CPT/HCPCS: 36415; 80053; 80061; 83721; 84443; 84550; 85025; 85027; 85651; 86038; 86140; 86200; 86225; 86430

== ENCOUNTER 2024-03-15 09:13 | Outpatient (CLI) | payer OTHER ==
--- NOTE | 2024-03-15 11:52 | XRAY Report ---
Knee 4+V RT HISTORY: 33 years of age, KNEE PAIN, RIGHT TECHNIQUE: Knee 4+V RT COMPARISON: None. FINDINGS/IMPRESSION: Trace knee effusion. No acute fracture or dislocation. Joint spaces are well maintained. Reviewed by: Denise Beaulieu MD on 03/15/2024 11:51 AM PDT Approved by: Denise Beaulieu MD on 03/15/2024 11:51 AM PDT Station ID: [id number]
== END 2024-03-15 09:14 | disposition home or self-care (01) ==
LOC: DI.N 09:13
PROVIDERS: ATTEND Nurse Practitioner
DX: M25.561 Pain in right knee (principal); M25.461 Effusion, right knee; R53.83 Other fatigue; Z13.220 Encounter for screening for lipoid disorders; M54.2 Cervicalgia; M54.6 Pain in thoracic spine; Z82.61 Family history of arthritis; G89.29 Other chronic pain
CPT/HCPCS: 36415; 80053; 80061; 83721; 84443; 84550; 85025; 85027; 85651; 86038; 86140; 86200; 86225; 86430

== ENCOUNTER 2024-04-21 04:28 | Emergency (ER) | payer OTHER ==
--- NOTE | 2024-04-21 04:42 | ED Physician Documentation ---
PD HPI ABD PAIN - Stated complaint Stated Complaint: ABD PX - History obtained from History obtained from: Patient - Additional information Additional information: HPI from patient. Patient complains of pain across her lower abdomen/anterior pelvis. This began approximately 24 hours [employer] without inciting event. She describes the pain as a constant baseline aching but waxing and waning cramping pain which, at times, is severe and associated with nausea and vomiting (only when the pain is severe). She also developed vaginal spotting yesterday coinciding with the onset of this abdominal/pelvic discomfort. Patient has undergone bilateral salpingectomy earlier this year for purposes of preventing further pregnancies. She last gave approximately 16 months ago and is still breast-feeding this child. PD PAST MEDICAL HISTORY - Past Medical History Cardiovascular: None Respiratory: None Neuro: None Endocrine/Autoimmune: None GI: None PAINTING MACHINE OPERATOR: None : Kidney stones HEENT: None Psych: None Musculoskeletal: Chronic back pain Derm: None - Past Surgical History Past Surgical History: No Ortho: Other HEENT: Tonsil/Adenoidectomy - Present Medications Home Medications: Ambulatory Orders Medication Instructions Recorded Confirmed Ibuprofen [Motrin] 1,200 mg PO ONCE 08/31/18 12/06/22 Acetaminophen [Acetaminophen Extra 1,000 mg PO Q8H PRN #60 tablet 12/12/22 Strength] Ferrous Sulfate 325 mg PO BID #60 tab 12/12/22 Ibuprofen [Motrin] 600 mg PO Q6H PRN #30 tab 12/12/22 - Allergies Allergies/Adverse Reactions: Allergies Allergy/AdvReac Type Severity Reaction Status Date / Time No Known Drug Allergies Allergy Verified 04/21/24 04:50 - Social History Does the pt smoke?: No Smoking Status: Never smoker Does the pt drink ETOH?: No Does the pt have substance abuse?: No - Immunizations Immunizations are current?: Yes - POLST Patient has POLST: No PD ED PE NORMAL - Vitals Vital signs reviewed: Yes - General General: Alert and oriented X 3, No acute distress, Well developed/nourished - Cardiac Cardiac: RRR, No murmur - Respiratory Respiratory: No respiratory distress, Clear bilaterally - Abdomen Abdomen: Soft, Non distended, Other (TTP across lower abdomen and anterior pelvis without guarding or rebound) - Back Back: No CVA TTP Results - Vitals Vitals: Vital Signs - 24 hr 04/21/24 04/21/2404/21/24 04:41 04:50 06:42 Temperature 36.1 C L Heart Rate 86 86 89 Respiratory 15 16 Rate Blood Pressure 109/63 120/69 O2 Saturation 99 99 04/21/24 08:53 Temperature 36.4 C L Heart Rate 73 Respiratory 18 Rate Blood Pressure 102/66 O2 Saturation 99 Oxygen O2 Source Room air - Labs Labs: Laboratory Tests 04/21/24 04/21/24 04/21/24 05:14 05:14 05:14 WBC 9.0 RBC 4.71 Hgb 13.7 Hct 41.2 MCV 87.5 MCH 29.1 MCHC 33.3 RDW 11.8 L Plt Count 224 MPV 11.3 H Neut # (Auto) 7.2 H Lymph # (Auto) 1.1 L [place] # (Auto) 0.7 Eos # (Auto) 0.0 Baso # (Auto) 0.0 Absolute Nucleated RBC 0.00 Nucleated RBC % 0.0 Sodium 137 Potassium 3.5 Chloride 105 Carbon Dioxide 24 Anion Gap 8.0 BUN 17 Creatinine 0.8 Estimated GFR (MDRD) 82 L Glucose 105 H Calcium 9.3 Total Bilirubin 0.8 AST 15 ALT 17 Alkaline Phosphatase 52 Total Protein 7.4 Albumin 4.4 Globulin 3.0 Albumin/Globulin Ratio 1.5 Lipase 12 Urine Color YELLOW Urine Clarity CLEAR Urine pH 7.0 Ur Specific [place] 1.020 Urine Protein NEGATIVE Urine Glucose (UA) NEGATIVE Urine Ketones 40 H Urine Occult Blood SMALL H Urine Nitrite NEGATIVE Urine Bilirubin NEGATIVE Urine Urobilinogen 1 (NORMAL) Ur Leukocyte Esterase NEGATIVE Urine RBC 0-5 Urine WBC 0-3 Ur Squamous Epith Cells MOD Squamous H Urine Bacteria None Seen Urine Mucus Few Strands Ur Microscopic Review INDICATED Urine Culture Comments NOT INDICATED Urine HCG, Qual NEGATIVE C. glabrata (PCR) C. krusei (PCR) Lauren species DNA Chlam trachomat DNA PCR N.gonorrhoeae DNA (PCR) T. vaginalis (PCR) Bact Vaginosis (PCR) 04/21/24 04/21/24 07:54 07:54 WBC RBC Hgb Hct MCV MCH MCHC RDW Plt Count MPV Neut # (Auto) Lymph # (Auto) [place] # (Auto) Eos # (Auto) Baso # (Auto) Absolute Nucleated RBC Nucleated RBC % Sodium Potassium Chloride Carbon Dioxide Anion Gap BUN Creatinine Estimated GFR (MDRD) Glucose Calcium Total Bilirubin AST ALT Alkaline Phosphatase Total Protein Albumin Globulin Albumin/Globulin Ratio Lipase Urine Color Urine Clarity Urine pH Ur Specific [place] Urine Protein Urine Glucose (UA) Urine Ketones Urine Occult Blood Urine Nitrite Urine Bilirubin Urine Urobilinogen Ur Leukocyte Esterase Urine RBC Urine WBC Ur Squamous Epith Cells Urine Bacteria Urine Mucus Ur Microscopic Review Urine Culture Comments Urine HCG, Qual C. glabrata (PCR) NEGATIVE C. krusei (PCR) NEGATIVE Lauren species DNA NEGATIVE Chlam trachomat DNA PCR NEGATIVE N.gonorrhoeae DNA (PCR) NEGATIVE T. vaginalis (PCR) NEGATIVE TNP Bact Vaginosis (PCR) NEGATIVE - Rads (name of study) CT A/P with IV contrast Relevant Findings:: Prelim report reviewed, See rad report PD Medical Decision Making - ED course Complexity details: reviewed results, re-evaluated patient, considered differential, d/w patient ED course: No concerning nor diagnostic findings on CBC, ER abdominal panel. Urinalysis with ketones and small blood on macroscopic results, but unremarkable microscopic results (including no red blood cells on microscopy). Results of CT of the abdomen pelvis are pending at the end of my shift and thus care of this patient is turned over to the oncoming ED physician (Dr. Kapadia). Patient declined analgesia after the my initial H&P as well as on reevaluation prior to the end of my shift. Departure - Departure Disposition: 01 Home, Self Care Clinical Impression: Lower abdominal pain, Ruptured ovarian cyst Condition: Stable Follow-Up: Samantha Carlisle ARNP [Primary Care Provider] - Comments: Your CT scan showed some cystic changes in the right ovary area with some surrounding inflammation and fluid. The ultrasound showed the fluid in the area but no cyst. It sounds likely then that you were rupturing the cyst and it now is essentially deflated. This causes irritation and cramping and spasm in the pelvic muscles and inflammation in the area. This typically downtrends over several days. I would suggest some anti-inflammatory such as ibuprofen or naproxen 2-3 times daily with food. Add Tylenol 500 to 650 mg 4 times a day over the next several days. The initial description from the operations technician was not of a thicker appearance and there was no free fluid such that it does not sound like ongoing bleeding or such from the ovary. There was blood flow present so no torsion. Your blood count and white count are normal. Does not sound like an infection or abscess. Your urine was clear without any signs of infection. The vaginal swabs will result later today and we will call you if there is any positives and you can also look up the results on the patient portal. Recheck if not improved over the next several days and resolved by 3 to 5 days. Forms: PCP List Discharge Date/Time: 04/21/24 08:52
[2024-04-21 04:51] VITALS: O2SAT 99
[2024-04-21 05:26] LABS: BASOPHILS % (AUTO) 0.2 %; EOSINOPHILS % (AUTO) 0.3 %; HCT - HEMATOCRIT 41.2 % (37.0-47.0); HGB - HEMOGLOBIN 13.7 g/dL (12.0-16.0); LYMPHOCYTES # (AUTO) 1.1 10^3/uL (1.5-3.5); LYMPHOCYTES % (AUTO) 12.4 %; MEAN CORPUSCULAR HEMOGLOBIN 29.1 pg (27.0-31.0); MEAN CORPUSCULAR HGB CONC 33.3 g/dL (32.0-36.0); MEAN CORPUSCULAR VOLUME 87.5 fL (81.0-99.0); MEAN PLATELET VOLUME 11.3 fL (7.9-10.8); MONOCYTES # (AUTO) 0.7 10^3/uL (0.0-1.0); MONOCYTES % (AUTO) 7.6 %; NEUTROPHILS # (AUTO) 7.2 10^3/uL (1.5-6.6); NEUTROPHILS % (AUTO) 79.4 %; PLT - PLATELET COUNT 224 10^3/uL (130-450); RED BLOOD COUNT 4.71 10^6/uL (4.20-5.40); RED CELL DISTRIBUTION WIDTH 11.8 % (12.0-15.0)
[2024-04-21] MEDS ORDERED: iohexoL-300 100 ML VIAL ONE (05:34)
[2024-04-21 05:41] LABS: ALBUMIN 4.4 g/dL (3.2-5.5); ALBUMIN/GLOBULIN RATIO 1.5 (1.0-2.2); BILIRUBIN,TOTAL 0.8 mg/dL (0.2-1.0); CALCIUM 9.3 mg/dL (8.5-10.3); CREATININE 0.8 mg/dL (0.6-1.3); POTASSIUM 3.5 mmol/L (3.5-4.5); TOTAL PROTEIN 7.4 g/dL (6.4-8.9)
[2024-04-21 05:43] LABS: BILIRUBIN,URINE NEGATIVE (NEGATIVE); GLUCOSE, URINE (UA) NEGATIVE (NEGATIVE); KETONES,URINE (UA) 40 mg/dL (NEGATIVE); LEUKOCYTE ESTERASE, URINE NEGATIVE (NEGATIVE); NITRITE,URINE NEGATIVE (NEGATIVE); OCCULT BLOOD,URINE SMALL (NEGATIVE); PROTEIN,URINE NEGATIVE (NEGATIVE); UROBILINOGEN,URINE 1 (NORMAL) E.U./dL (NORMAL)
[2024-04-21 05:55] LABS: BACTERIA,URINE None Seen /HPF (None Seen); CLARITY,URINE CLEAR (CLEAR); HCG UR QUAL NEGATIVE; MUCUS,URINE Few Strands; RBC,URINE 0-5 /HPF (0-5); SQUAMOUS EPITHELIAL CELL,UR MOD Squamous (<= Few); WBC,URINE 0-3 /HPF (0-5)
[2024-04-21] MEDS: iohexoL-300 100 ML VIAL IVP ONE (06:25)
--- NOTE | 2024-04-21 07:26 | CT Report ---
PROCEDURE: Abdomen/Pelvis W INDICATIONS: abd. pain CONTRAST: 100 ML OMNI 300 TECHNIQUE: After the administration of intravenous contrast, a CT scan of the abdomen and pelvis was performed. Images were recorded and evaluated at appropriate window settings. Reformats: coronal and sagittal. F or radiation dose reduction, the following was used: automated exposure control, adjustment of mA and /or kV according to patient size. COMPARISON: None. FINDINGS: Image quality: Diagnostic. Lower chest: Unremarkable. Liver: No solid mass. Gallbladder: No radiopaque stones or wall thickening. Biliary tree: No intrahepatic or extrahepatic dilation, accounting for age. Spleen: No splenomegaly. Pancreas: No pancreatic ductal dilation. Adrenals: No adrenal nodule. Kidneys and ureters: The kidneys enhance symmetrically. No renal masses. Very mild prominence of the right collecting system. Right extrarenal pelvis. Prominent right ureter with mild ureteral thickenin g and enhancement. Reference image 97 of series 2 for ureteral thickening and enhancement. Findings a re nonspecific and can be related to previous stone disease or can indicate ureteritis. Stomach, bowel and peritoneum: No gastric or small bowel dilation. No abnormal wall thickening. No pa thologic free fluid. Lymph nodes: No central or retroperitoneal adenopathy. Vessels: No infrarenal aortic aneurysm. Patent portal vein. PELVIS Reproductive organs: Cystic right adnexa. Physiologic pelvic fluid. Question paraovarian inflammatory change in the adjacent fat. Bladder: No abnormal wall thickening, accounting for underdistention. Pelvic lymph nodes: No pelvic adenopathy by size criteria. Bones: No aggressive osseous abnormality. Other: No significant ventral or inguinal hernia. IMPRESSION: Nonspecific findings. Question bacterial ureteritis of the right ureter. Recommend correlation with u rine findings. Cystic right adnexa with question of inflammatory change in the adjacent fat. Consider pelvic inflammatory disease. Consider possible recent right adnexal cystic rupture. Recommend clinic al correlation. Reviewed by: Frankie Dorman MD on 04/21/2024 7:25 AM PDT Approved by: Frankie Dorman MD on 04/21/2024 7:25 AM PDT Station ID: [id number]
[2024-04-21 08:55] VITALS: BP 102/66
--- NOTE | 2024-04-21 09:57 | Ultrasound Report ---
PROCEDURE: Pelvic w/Transvag+Doppler Comp INDICATIONS: pelvic pain, R TECHNIQUE: Transabdominal ultrasound of the pelvis was obtained. Patient refused transvaginal evaluat ion. COMPARISON: 12/11/2022 FINDINGS: Uterine size: Uterus measures 7.2 x 4.5 x 6.3 cm, and is anteverted. Myometrium: The myometrium is homogeneous. Endometrium: The endometrium measures 1.0 mm in combined thickness. Right ovary: The right ovary measures 3.2 x 2.4 x 3.0 cm. Calculated ovarian volume 11.1 cc. Left ovary: The left ovary measures 2.3 x 1.9 x 2.0 cm. Calculated ovarian volume 5.2 cc. Other: Trace amount of right adnexal free fluid. IMPRESSION: Trace right adnexal free fluid. Otherwise unremarkable ultrasound pelvis Reviewed by: Wes Aguila MD on 04/21/2024 8:56 AM [place] Approved by: Wes gAuila MD on 04/21/2024 8:56 AM [place] Station ID: [id number]
[2024-04-21 10:09] LABS: CHLAMYDIA TRACHOMATIS DNA NEGATIVE (NEGATIVE); NEISSERIA GONORRHOEAE DNA NEGATIVE (NEGATIVE)
[2024-04-21 10:12] LABS: BACTERIAL VAGINOSIS DNA NEGATIVE (NEGATIVE); CANDIDA GLABRATA DNA NEGATIVE (NEGATIVE); CANDIDA GROUP DNA NEGATIVE (NEGATIVE); CANDIDA KRUSEI DNA NEGATIVE (NEGATIVE); TRICHOMONAS VAGINALIS DNA NEGATIVE (NEGATIVE)
--- NOTE | 2024-04-21 22:40 | ED Physician Documentation ---
ED Addendum - Addendum Addendum: 04/21/24 22:37Getting CT results back and showed cystic changes right adnexa, with inflammatory/infectious changes around it. No free fluid. No other acute changes. I talked with pt about this, and to characterize the fluid better and look for free fluid, as well as assess fpr pvaroan b;ppd f;pw, suggested US now. She is in agreement. US showing no cysts, with trace fluid in adnexal area and good doppler flow. The difference from CT to US (few hours apart) could reflect some resolution of the fluid and further deflation of the cyst, as CT did show a clear cystic structure and surrounding inflammation. Seems likely her pain was ruptured cyst, with no other findings as potential pain. She is comfortable going home and declines Rx pain meds. DIsposition: diagnosed home stable. Diagnoses: right lower abd pain, abrupt onset right ovarian cyst rupture
== END 2024-04-21 08:52 | disposition home or self-care (01) ==
LOC: ED 04:28
DX: N83.201 Unspecified ovarian cyst, right side (principal)
CPT/HCPCS: 36415; 74177; 76830; 76856; 80053; 81001; 81025; 81514; 83690; 85025; 87491; 87591; 93975; 99283; 99284; Q9967; 81003; 87086; 87661